=== PATIENT | male | born 1930 | race Caucasian/White ===

== ENCOUNTER 2017-05-01 10:54 | Day surgery (SDC) | payer MEDICARE ==
[2017-05-01 12:39] VITALS: BP 107/61; PULSE 80; RESP 19; TEMP 98.4; O2SAT 99
[2017-05-01] MEDS ORDERED: ADVA250A INH (12:45)
[2017-05-01] MEDS ORDERED: ALBU0.63 NEB (12:45)
[2017-05-01] MEDS ORDERED: CLOP75TA PO (12:46)
[2017-05-01] MEDS ORDERED: MEGE40TA PO (12:46)
[2017-05-01] MEDS ORDERED: ALPR0.25 PO (12:47)
[2017-05-01] MEDS ORDERED: METO25TA3 PO (12:47)
[2017-05-01] MEDS ORDERED: LEVO137T2 PO (12:48)
[2017-05-01] MEDS ORDERED: LOVA40TA PO (12:48)
[2017-05-01] MEDS ORDERED: SLOW47.5 PO (12:49)
[2017-05-01] MEDS ORDERED: SENN1TAB17 PO (12:50)
[2017-05-01] MEDS ORDERED: ADVA100A INH (12:51)
[2017-05-01] MEDS ORDERED: AFRI0.052 EACH NARE (12:52)
[2017-05-01] MEDS ORDERED: SODIUM CHLORIDE 0.9% FLUSH 10 ML FLUSH IVF PRN ×2 (16:15)
--- NOTE | 2017-05-01 16:38 | RADRPT ---
EXAM DATE/TIME: 05/01/2017 15:00 [facility] COMPARISON: No previous studies available for comparison. INDICATIONS : Patient presents with left palate and maxilla cancer in need of intravenous line placement for chemot herapy treatment. MEDICAL HISTORY : Maxilla cancer Anemia Anxiety SURGICAL HISTORY : Cardiac stent ENCOUNTER: Initial ACUITY: 2 weeks PAIN SCORE: 0/10 LOCATION: N/A FLUORO TIME: 1.6 minutes IMAGE SERIES: 0 ACCESS: Right basilic vein MEDICATION(S): 1.) 400 units Heparin IV DEVICE(S): 1.) 4 Arabic single lumen 35 cm Xcela Power PICC PROCEDURE : 1. Ultrasound guidance for venous catheterization. 2. Fluoroscopic guidance. 3. Ultrasound & fluoroscopic guided central venous Power PICC line placement. The risks, benefits and alternatives to the procedure were explained and verbal and written consent w as obtained. The site was prepped in sterile fashion. Full sterile technique was used, including ca p, mask, sterile gloves and gown and a large sterile sheet. Hand hygiene and 2% chlorhexidine prep w as utilized per protocol for cutaneous antisepsis with appropriate dry time for site. The skin and s ubcutaneous tissues were infiltrated with local anesthetic solution. Under direct ultrasound guidance, a suitable vein was accessed and a measuring guidewire was introduc ed and positioned in the central venous system. The ultrasound images depicting access guidance were saved and stored to PACS for permanent record. A Power Injectable PICC line was cut to prescribed length and introduced, positioned with tip at the cavoatrial junction level. The line was flushed and secured per protocol. CONCLUSION: 1. Uncomplicated central venous Power PICC line placement. 2. The PICC line can be used immediately. Felice Atkins MD on May 01, 2017 at 16:35 Board Certified Radiologist. This report was verified electronically.
[2017-05-02] MEDS ORDERED: SODIUM CHLORIDE 0.9% FLUSH 10 ML FLUSH IVF SCH (09:00)
== END 2017-05-01 15:25 | disposition home or self-care (01) ==
LOC: HROP 10:54 → HRIP 10:55 → HROP 15:25
PROVIDERS: ATTEND Internal Medicine Hematology & Oncology
DX: C41.0 Malignant neoplasm of bones of skull and face (principal); C05.9 Malignant neoplasm of palate, unspecified; D64.9 Anemia, unspecified; F41.9 Anxiety disorder, unspecified; Z95.5 Presence of coronary angioplasty implant and graft
CPT/HCPCS: 36569; J1642; 76937; 77001; 77386; 77387; C1751; C1769; C1887

== ENCOUNTER 2017-05-10 06:42 | Day surgery (SDC) | payer MEDICARE ==
[~2017-05-10] VITALS: Ht 172.7 cm; Wt 58.2 kg
[~2017-05-10 06:42] MED LIST: ADVA100A INH; ADVA250A INH; AFRI0.052 EACH NARE; ALBU0.63 NEB; ALPR0.25 PO; CLOP75TA PO; LEVO137T2 PO; LOVA40TA PO; MEGE40TA PO; METO25TA3 PO; SENN1TAB17 PO; SLOW47.5 PO
[2017-05-10 06:57] VITALS: BP 106/67; PULSE 75; RESP 20; TEMP 98.4; O2SAT 98
[2017-05-10] MEDS ORDERED: ceFAZolin 2 GM PREMIX 50 ML ONE (07:44)
[2017-05-10] MEDS ORDERED: BROC500T PO (07:44)
[2017-05-10] MEDS ORDERED: VANCOMYCIN HCL 1000 MG VIAL ONE (07:45)
[2017-05-10 08:18] LABS: PROTHROMBIN TIME - PATIENT 11.6 SEC (9.8-11.6)
[2017-05-10] MEDS ORDERED: SODIUM CHLORIDE 0.9% 1000 ML IV SCH (08:45)
[2017-05-10] MEDS ORDERED: fentaNYL CITRATE 250 MCG/5 ML AMP ONE (09:07)
[2017-05-10] MEDS ORDERED: MIDAZOLAM HCL 5 MG/5 ML VIAL ONE (09:07)
[2017-05-10] MEDS ORDERED: GLUCAGON 1 MG/ML VIAL ONE (09:08)
[2017-05-10] MEDS ORDERED: IOHEXOL 350 MG/ML 50 ML BTL (for RAD DIAG) G-TUBE ONE (09:39)
[2017-05-10 09:40] VITALS: BP 128/70; PULSE 70; RESP 18; O2SAT 96
--- NOTE | 2017-05-10 09:44 | PD.RAD ---
Post Procedure Progress Note Pre Procedure Diagnosis: (1) Head and neck cancer Post Procedure Diagnosis: (1) Head and neck cancer Procedure Date: May 10, 2017 Supervising Radiologist: Joesph Damico Proceduralist/Assist: Corinna Bull RT(R), RT Alexandre(R)() Anesthesia: Conscious Sedation Plan of Activity Patient to Unit: Nursing Unit Patient Condition: Good See PACS Report for procedural detail/treatment Joesph Damico MD May 10, 2017 09:44
[2017-05-10 09:55] VITALS: BP 127/76; PULSE 68; RESP 18; O2SAT 94
[2017-05-10 10:10] VITALS: BP 114/65; PULSE 67; RESP 18; O2SAT 96
--- NOTE | 2017-05-10 10:13 | RADRPT ---
EXAM DATE/TIME: 05/10/2017 08:22 [facility] COMPARISON: No previous studies available for comparison. 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 MEDICAL HISTORY : CAD, High cholesterol, Hypothyroidism, Anemia, Maxilla cancer, Asthma SURGICAL HISTORY : Cardiac stent, Left maxillectomy and insertion of maxillary prosthesis, Multiple biopsies, Right midd le lobe resection ENCOUNTER: Initial ACUITY: 4-6 months PAIN SCORE: 0/10 FLUORO TIME: 1.9 minutes IMAGE SERIES: 1 SEDATION TIME: 30 minutes CONTRAST: 20 cc Omnipaque (iohexol) 350 MEDICATION(S): 1.) 1.5 mg midazolam (Versed) IV 2.) 1 mg glucagon (Gluca-Gen) IV 3.) 75 mcg fentanyl (Sublimaze) IV Prophylactic antibiotics were administered with appropriate pre-procedure timing. Vancomycin within 2 hours of procedure, Ancef (or alternative) within 1 hour of procedure. DEVICE(S): 1.) 18 Fr gastrostomy tube PROCEDURE : 1. Limited abdominal ultrasound. 2. Fluoroscopically guided gastrostomy tube placement. 3. Conscious sedation with continuous EKG and oximetry monitoring. The risks, benefits and alternatives to the procedure were explained and verbal and written consent w as obtained. The site was prepped in sterile fashion. Full sterile technique was used, including ca p, mask, sterile gloves and gown and a large sterile sheet. Hand hygiene and 2% chlorhexidine and/or betadine/alcohol prep was utilized per protocol for cutaneous antisepsis. The skin and subcutaneous tissues were infiltrated with local anesthetic solution. Ultrasound was used to valeri the position of the liver. The stomach was insufflated with room air. Th ree percutaneous fasteners were placed to secure the anterior gastric wall. A small incision was made between the fasteners. The stomach was accessed with an 18 gauge needle. A n 0.035 wire was advanced into the small bowel. The tract was dilated. The gastrostomy tube was int roduced through a peel-away sheath. The position was confirmed with an injection of contrast. Conscious sedation was performed with the prescribed dosages and duration as above in the presence of an independent trained radiology nurse to assist in the monitoring of the patient. EKG and oximetry remained stable throughout the procedure. The patient tolerated the procedure well and there were n o complications. The patient was sent to post anesthesia recovery in stable condition. CONCLUSION: Uncomplicated gastrostomy tube placement as above. Joesph Damico MD on May 10, 2017 at 10:11 Board Certified Radiologist. This report was verified electronically.
[2017-05-10 10:55] VITALS: BP 125/71; PULSE 65; RESP 18; O2SAT 94
[2017-05-10 11:35] VITALS: BP 140/77; PULSE 64; RESP 18; O2SAT 96
== END 2017-05-10 11:50 | disposition home or self-care (01) ==
LOC: HROP 06:42 → HRIP 06:45 → HROP 11:50
PROVIDERS: ATTEND Internal Medicine Hematology & Oncology
DX: C79.51 Secondary malignant neoplasm of bone (principal); I25.10 Atherosclerotic heart disease of native coronary artery without angina pectoris; E03.9 Hypothyroidism, unspecified; E78.00 Pure hypercholesterolemia, unspecified; J45.909 Unspecified asthma, uncomplicated; Z95.5 Presence of coronary angioplasty implant and graft
CPT/HCPCS: 49440; 85610; 99152; 99153; C1769; C1887; C1894; J0690; J1610; J1642; J2250; J3010; J7030; Q9967; J3370

== ENCOUNTER 2017-05-23 10:37 | Observation (INO) | payer MEDICARE ==
[~2017-05-23 10:37] MED LIST changes: +BROC500T PO
[2017-05-23 10:39] VITALS: BP 157/74; PULSE 80; RESP 18; TEMP 97.7; O2SAT 97
[2017-05-23] MEDS ORDERED: SODIUM CHLORIDE 0.9% FLUSH 10 ML FLUSH IVF PRN (11:00)
[2017-05-23 11:06] VITALS: RESP 14; O2SAT 100
[2017-05-23 11:13] LABS: AUTOMATED NEUTROPHIL # 9.4 TH/MM3 (1.8-7.7); BASOPHIL % 0.1 % (0.0-2.0); HEMATOCRIT 33.5 % (39.0-51.0); HEMO FLAGS DIFF FINAL; LYMPH % 1.3 % (9.0-44.0); LYMPHOCYTE # 0.1 TH/MM3 (1.0-4.8); MEAN CELL VOLUME 85.9 FL (80.0-100.0); MEAN CORPUSCULAR HEMOGLOBIN 30.2 PG (27.0-34.0); MEAN CORPUSCULAR HGB CONC 35.2 % (32.0-36.0); MONO % 9.2 % (0.0-8.0); NEUT % 89.4 % (16.0-70.0); PLATELET COUNT 256 TH/MM3 (150-450); RED CELL DISTRIBUTION WIDTH 15.1 % (11.6-17.2); WHITE BLOOD COUNT 10.5 TH/MM3 (4.0-11.0)
--- NOTE | 2017-05-23 11:14 | PD ---
HPI Chief Complaint: Abdominal Pain Time Seen by Provider: 10:48 Travel History International Travel<30 days: No Contact w/Intl Traveler<30days: No Traveled to known affect area: No History of Present Illness HPI PATIENT HAD EPISODE OF VOMITING LAST NIGHT AND SINCE THEN SEVERE EPIG PAIN THAT HAS NOW DECREASED TO 5/10, NONRAD, UNKNOWN WHAT ALLEVIATED SX, AGGRAVATED BY EATING (HAS PEG TUBE IN PLACE), DENIES RECENT SURGERY AND CURRENTLY ON CHEMO...DR OBRIEN ONCOLOGIST, DR PRADO IS PCP. [facility] Past Medical History Cancer: Yes (MOUTH THROAT) Cardiovascular Problems: Yes (STENT) Diabetes: No Diminished Hearing: Yes (BLIATERAL HEARING AIDS) Endocrine: No Genitourinary: No Hepatitis: No Hiatal Hernia: No Hypertension: Yes Immune Disorder: No Musculoskeletal: No Neurologic: No Psychiatric: No Reproductive: No Respiratory: Yes (ASTHMA) Thyroid Disease: Yes Influenza Vaccination: No Past Surgical History Abdominal Surgery: No AICD: No Cardiac Surgery: Yes (STENT) Ear Surgery: No Endocrine Surgery: No Eye Surgery: Yes (CATARACTS) Genitourinary Surgery: No Gynecologic Surgery: No Joint Replacement: No Oral Surgery: Yes (CANCER REMOVED) Pacemaker: No Thoracic Surgery: Yes (LEFT LOBECTOMY) Other Surgery: Yes Social History Alcohol Use: No Tobacco Use: No Substance Use: No Allergies-Medications (Allergen,Severity, Reaction): Coded Allergies: Oxycodone (Verified Adverse Reaction, Intermediate, 05/23/17) severe nausea Reported Meds & Prescriptions Reported Meds & Active Scripts Active Reported [Wheat Grass] 5 Ml PO DAILY l-Glutamine (Glutamine) 1 Pow Pow PO DAILY 1 teaspoonful [Aloe Juice] 180 Ml PO BID 1 [id number] Flax Seed Oil 1000 mg (Flaxseed (Linseed)) 1 Cap Cap 1,000 Mg PO BID Probiotic (Probiotic Product) 1 Tab Tab 1 Tab PO DAILY [Plantfusion Protein] 1 Tab PO BID Azo Bladder Swycoir-Fp-Mwda (Pumpkin Seed-Soy Germ) 1 Cap Cap 1 Cap PO DAILY PRN Flonase Nasal [place] (Fluticasone Nasal [place]) 50 Mcg/Act [place] 1 [place] EACH NARE DAILY PRN Senokot (Sennosides) 8.6 Mg Tab 17.2 Mg PO DAILY Sm Iron Slow Release (Ferrous Sulfate) 142 Mg Tab 142 Mg PO DAILY Broccoli Extract 500 Mg Tab 1,000 Mg PO DAILY Afrin Nasal [place] (Oxymetazoline HCl) 0.05% [place] 2-3 [place] EACH NARE Q12H PRN Levothyroxine (Levothyroxine Sodium) 137 Mcg Tab 137 Mcg PO DAILY Lovastatin 40 Mg Tab 40 Mg PO DAILY Metoprolol Tartrate 25 Mg Tab 25 Mg PO BID Alprazolam 0.25 Mg Tab 0.25 Mg PO Q4H PRN Megestrol (Megestrol Acetate) 40 Mg Tab 40 Mg PO DAILY Clopidogrel (Clopidogrel Bisulfate) 75 Mg Tab 75 Mg PO DAILY Albuterol Neb (Albuterol Sulfate) 0.63 Mg/3 Ml Neb 0.63 Mg NEB Q4HR NEB PRN Advair Diskus Inh (Fluticasone-Salmeterol Inh) 250-50 Mcg/Blist Aer 1 Puff INH BID Rinse mouth after use. Review of Systems Except as stated in HPI: all other systems reviewed are Neg Gastrointestinal: Positive: Vomiting, Abdominal Pain Physical Exam Narrative GENERAL: SKIN: Warm and dry. HEAD: Atraumatic. Normocephalic. EYES: Pupils equal and round. No scleral icterus. No injection or drainage. ENT: No nasal bleeding or discharge. Mucous membranes pink and moist. NECK: Trachea midline. No JVD. LEFT SIDED LARGE MASS (KNOWN CA) CARDIOVASCULAR: Regular rate and rhythm. RESPIRATORY: No accessory muscle use. Clear to auscultation. Breath sounds equal bilaterally. GASTROINTESTINAL: Abdomen soft, MILD TTP OVER EPIG REGION ,nondistended. NO REBOUND, GUARDING OR RIGIDITY MUSCULOSKELETAL: Extremities without clubbing, cyanosis, or edema. No obvious deformities. NEUROLOGICAL: Awake and alert. No obvious cranial nerve deficits. Motor grossly within normal limits. Five out of 5 muscle strength in the arms and legs. Normal speech. PSYCHIATRIC: Appropriate mood and affect; insight and judgment normal. Data Data Last Documented VS Vital Signs Date Time Temp Pulse Resp B/P Pulse Ox O2 Delivery O2 Flow Rate FiO2 05/23/17 13:03 81 19 132/75 99 Room Air 05/23/17 10:39 97.7 Orders Electrocardiogram (05/23/17 10:49) Ckmb (Isoenzyme) Profile (05/23/17 10:49) Complete Blood Count With Diff (05/23/17 10:49) Comprehensive Metabolic Panel (05/23/17 10:49) Prothrombin Time / Inr (Pt) (05/23/17 10:49) Act Partial Throm Time (Ptt) (05/23/17 10:49) Troponin I (05/23/17 10:49) Lipase (05/23/17 10:49) Chest, Single Ap (05/23/17 10:49) Ecg Monitoring (05/23/17 10:49) Bilateral Bp Monitoring (05/23/17 10:49) Iv Access Insert/Monitor (05/23/17 10:49) Oximetry (05/23/17 10:49) Oxygen Administration (05/23/17 10:49) Sodium Chloride 0.9% Flush (Ns Flush) (05/23/17 11:00) Lactic Acid Sepsis Protocol (05/23/17 10:59) Blood Culture (05/23/17 10:59) Ct Abd/Pel W/O Iv Contrast (05/23/17 10:59) Morphine Inj (Morphine Inj) (05/23/17 13:00) Ondansetron Inj (Zofran Inj) (05/23/17 13:00) Sodium Chlorid 0.9% 500 Ml Inj (Ns 500 M (05/23/17 13:00) Admit Order (Ed Use Only) (05/23/17 14:12) Labs Laboratory Tests Test 05/23/17 10:57 White Blood Count 10.5 TH/MM3 Red Blood Count 3.90 MIL/MM3 Hemoglobin 11.8 GM/DL Hematocrit 33.5 % Mean Corpuscular Volume 85.9 FL Mean Corpuscular Hemoglobin 30.2 PG Mean Corpuscular Hemoglobin 35.2 % Concent Red Cell Distribution Width 15.1 % Platelet Count 256 TH/MM3 Mean Platelet Volume 7.6 FL Neutrophils (%) (Auto) 89.4 % Lymphocytes (%) (Auto) 1.3 % Monocytes (%) (Auto) 9.2 % Eosinophils (%) (Auto) 0.0 % Basophils (%) (Auto) 0.1 % Neutrophils # (Auto) 9.4 TH/MM3 Lymphocytes # (Auto) 0.1 TH/MM3 Monocytes # (Auto) 1.0 TH/MM3 Eosinophils # (Auto) 0.0 TH/MM3 Basophils # (Auto) 0.0 TH/MM3 CBC Comment DIFF FINAL Differential Comment Prothrombin Time 11.4 SEC Prothromb Time International 1.0 RATIO Ratio Activated Partial 28.2 SEC Thromboplast Time Sodium Level 134 MEQ/L Potassium Level 4.3 MEQ/L Chloride Level 101 MEQ/L Carbon Dioxide Level 23.9 MEQ/L Anion Gap 9 MEQ/L Blood Urea Nitrogen 25 MG/DL Creatinine 1.24 MG/DL Estimat Glomerular Filtration 56 ML/MIN Rate Random Glucose 112 MG/DL Lactic Acid Level 1.8 mmol/L Calcium Level 8.8 MG/DL Total Bilirubin 0.3 MG/DL Aspartate Amino Transf 29 U/L (AST/SGOT) Alanine Aminotransferase 44 U/L (ALT/SGPT) Alkaline Phosphatase 76 U/L Total Creatine Kinase 21 U/L Troponin I LESS THAN 0.02 NG/ML Total Protein 7.5 GM/DL Albumin 3.0 GM/DL Lipase 131 U/L [facility] Medical Decision Making Medical Screen Exam Complete: Yes Emergency Medical Condition: Yes Medical Record Reviewed: Yes Interpretation(s) NSR 70, NL INTERVALS , NO STEMI PATTERN Differential Diagnosis PANCREATITIS V SBO V PERF V ABD PAIN DUE TO METS Narrative Course PATIENT WAS ADVISED THAT CT DID NOT SHOW ANY PERFORATION/SBO AND NO E/O PANCREATITIS ON BLOOD WORK...HOWEVER DUE TO AGE AND LOCATION I ADVISED ABOUT RISK OF ATYPICAL ME, THEY BOTH AGREED, CHEST PAIN CENTER ORDER PLACED. LATER ON CLOSE TO [address] SAMPSON AQUINO ([place]) AFTER WHICH PATIENT DID NOT WISH TO STAY, DESPITE MY ATTEMPTS, PT AND BOTH WANTED TO GO HOME AND DID NOT WISH TO MISS RADIATION TREATMENT TOMORROW. Diagnosis Primary Impression: EPIGASTRIC PAIN R/O ME Additional Impression: AMA Admitting Information Admitting Physician Requests: Observation Disposition: 07 AGAINST MEDICAL ADVICE Paxton Freeman MD May 23, 2017 11:14
[2017-05-23 11:24] LABS: APTT (PATIENT) 28.2 SEC (24.3-30.1); PROTHROMBIN TIME - PATIENT 11.4 SEC (9.8-11.6)
--- NOTE | 2017-05-23 11:28 | RADRPT ---
EXAM DATE/TIME: 05/23/2017 11:01 [facility] COMPARISON: No previous studies available for comparison. INDICATIONS : Chest and abdomen pain. MEDICAL HISTORY : CAD, High cholesterol, Hypothyroidism, Anemia, Maxilla cancer, Asthma Chemo and radiation. SURGICAL HISTORY : Cardiac stent, Left maxillectomy and insertion of maxillary prosthesis, Multiplebiopsies, Right middl e lobe resection ENCOUNTER: Initial ACUITY: 1 day PAIN SCORE: 5/10 LOCATION: Bilateral chest abdomen and neck. FINDINGS: There is hyperinflation identified. Heart size normal. Right PIC line tip overlies the expected locat ion of the SVC. There is right apical parenchymal scarring. No consolidation or effusion. Osseous str uctures are intact. CONCLUSION: No acute disease. Jake Agudelo MD on May 23, 2017 at 11:24 Board Certified Radiologist. This report was verified electronically.
[2017-05-23 11:35] LABS: ALT (GPT) 44 U/L (12-78); ANION GAP 9 MEQ/L (5-15); AST (GOT) 29 U/L (15-37); BICARBONATE 23.9 MEQ/L (21.0-32.0); BLOOD UREA NITROGEN 25 MG/DL (7-18); CHLORIDE 101 MEQ/L (98-107); GLOMERULAR FILTRATION RATE 56 ML/MIN (>89); POTASSIUM 4.3 MEQ/L (3.5-5.1); SODIUM (NA) 134 MEQ/L (136-145)
[2017-05-23 11:39] LABS: ALKALINE PHOSPHATASE 76 U/L (45-117); TOTAL BILIRUBIN ADULT 0.3 MG/DL (0.2-1.0)
[2017-05-23 11:49] LABS: CREATINE KINASE 21 U/L (39-308)
[2017-05-23] MEDS ORDERED: PROB1TAB PO (12:09)
[2017-05-23] MEDS ORDERED: PUMP1CAP PO (12:09)
[2017-05-23] MEDS ORDERED: GLUT1POW PO (12:09)
[2017-05-23] MEDS ORDERED: FLAX10002 PO (12:09)
[2017-05-23] MEDS ORDERED: ALOE JUICE PO (12:09)
[2017-05-23] MEDS ORDERED: [UNRECOGNIZED DRUG - OTHER] PO (12:09)
[2017-05-23] MEDS ORDERED: FLUT1SPR5 EACH NARE (12:09)
[2017-05-23] MEDS ORDERED: SENO8.6T5 PO (12:09)
[2017-05-23] MEDS ORDERED: [UNRECOGNIZED DRUG - OTHER] PO (12:09)
[2017-05-23] MEDS ORDERED: [UNRECOGNIZED DRUG - CODE] PO (12:09)
[2017-05-23] MEDS ORDERED: WHEAT GRASS PO (12:10)
[2017-05-23] MEDS ORDERED: MORPHINE SULFATE 4 MG/ML INJ IV PUSH ONE (13:00)
[2017-05-23] MEDS ORDERED: ONDANSETRON HCL 4 MG/2 ML VIAL IV PUSH ONE (13:00)
[2017-05-23] MEDS ORDERED: SODIUM CHLORID 0.9% 500 ML INJ 500 ML IV ONE (13:00)
[2017-05-23 13:03] VITALS: BP 132/75; PULSE 81; RESP 19; O2SAT 99
--- NOTE | 2017-05-23 13:05 | RADRPT ---
EXAM DATE/TIME: 05/23/2017 12:19 [facility] COMPARISON: No previous studies available for comparison. INDICATIONS : History of oral cancer, epigastric pain since last night. ORAL CONTRAST: No oral contrast ingested. RADIATION DOSE: 5.06 CTDIvol (mGy) MEDICAL HISTORY : Carcinoma, oral cavity. Cardiovascular disease Hypertension. SURGICAL HISTORY : oral cancer removed ENCOUNTER: Initial ACUITY: 1 day PAIN SCALE: 4/10 LOCATION: epigastric pain TECHNIQUE: Volumetric scanning of the abdomen and pelvis was performed. Using automated exposure control and ad justment of the mA and/or kV according to patient size, radiation dose was kept as low as reasonably achievable to obtain optimal diagnostic quality images. DICOM format image data is available electro nically for review and comparison. FINDINGS: Linear scarring present at the lung bases. He No acute findings in the liver, spleen, adrenals or pancreas. Gastrostomy tube present. Nonobstructin g approximately 2 mm calculi present in the upper and lower pole right kidney and upper pole left kid selena. No hydronephrosis. Atherosclerotic aorta without aneurysm. No pelvic masses or free fluid. Colonic diverticulosis, espec ially sigmoid. No acute bony abnormalities. CONCLUSION: 1. No acute findings. 2. Gastrostomy tube in stomach. 3. Nonobstructing small renal calculi. 4. Colonic diverticulosis. Sarmad Ramirez MD on May 23, 2017 at 12:58 Board Certified Radiologist. This report was verified electronically.
[2017-05-23 15:12] VITALS: BP 122/81; PULSE 75; RESP 16; O2SAT 100
--- NOTE | 2017-05-24 10:12 | EKG ---
Date Performed: 05/23/2017 Time Performed: 11:02:12 PTAGE: 86 years EKG: Sinus rhythm NORMAL ECG NO PREVIOUS TRACING DOCTOR: Chris Haque Interpretating Date/Time 05/24/2017 10:11:03
== END 2017-05-23 15:11 | disposition left against medical advice (07) ==
LOC: NEPC 10:37 → NEDA 14:14
PROVIDERS: ADMIT Internal Medicine Cardiovascular Disease; ATTEND Internal Medicine Cardiovascular Disease
DX: R10.13 Epigastric pain (principal); R11.10 Vomiting, unspecified; I25.10 Atherosclerotic heart disease of native coronary artery without angina pectoris; I10 Essential (primary) hypertension; E78.00 Pure hypercholesterolemia, unspecified; E03.9 Hypothyroidism, unspecified; J45.909 Unspecified asthma, uncomplicated; K57.30 Diverticulosis of large intestine without perforation or abscess without bleeding; N20.0 Calculus of kidney; H91.90 Unspecified hearing loss, unspecified ear; Z93.1 Gastrostomy status; Z95.5 Presence of coronary angioplasty implant and graft; Z79.899 Other long term (current) drug therapy; Z85.89 Personal history of malignant neoplasm of other organs and systems; Z92.21 Personal history of antineoplastic chemotherapy; Z92.3 Personal history of irradiation
CPT/HCPCS: 71010; 74176; 80053; 82550; 83605; 83690; 84484; 85025; 85610; 85730; 87040; 93005; 96361; 96374; 96375; 99285; G0378; J2270; J2405; J7040

== ENCOUNTER 2017-05-30 08:46 | Inpatient (IN) | payer MEDICARE ==
[~2017-05-30] VITALS: Ht 162.6 cm; Wt 59.7 kg
[2017-05-30] VITALS (7 sets, daily range): BP systolic 116–140; BP diastolic 55–81; PULSE 68–86; RESP 14–20; TEMP 97.4–98.3; O2SAT 96–100
[~2017-05-30 08:46] MED LIST changes: -ADVA100A INH; +ALOE JUICE PO; +FLAX10002 PO; +FLUT1SPR5 EACH NARE; +GLUT1POW PO; +PROB1TAB PO; +PUMP1CAP PO; -SENN1TAB17 PO; +SENO8.6T5 PO; -SLOW47.5 PO; +WHEAT GRASS PO; +[UNRECOGNIZED DRUG - CODE] PO; +[UNRECOGNIZED DRUG - OTHER] PO
[2017-05-30] MEDS ORDERED: ONDANSETRON HCL 4 MG/2 ML VIAL IV ONE (09:30)
[2017-05-30] MEDS ORDERED: SODIUM CHLORID 0.9% 500 ML INJ 500 ML IV ONE (09:30)
--- NOTE | 2017-05-30 09:31 | PD ---
HPI Chief Complaint: GI Complaint Time Seen by Provider: 09:24 Travel History International Travel<30 days: No Contact w/Intl Traveler<30days: No Traveled to known affect area: No History of Present Illness HPI 86-year-old male with history of oral cavity cancer, on chemotherapy and radiation, presents to the ER today for several days of nausea and vomiting not controlled with his current home medications. Patient's states that he is not keeping anything down. He was told by his oncologist to come to the ER for further treatment. denies any fevers or any other issues per patient has PEG tube. Modifying Factors: None Associated Signs & Symptoms: Nausea and vomiting for several days Risk Factors: Cancer on chemotherapy and radiation PFSH Past Medical History Hx Anticoagulant Therapy: Yes (PLAVIX) Cancer: Yes (MOUTH THROAT) Cardiovascular Problems: Yes (1 STENT) Chemotherapy: Yes (05/22/17 ORAL CA) Diabetes: No Diminished Hearing: Yes (BLIATERAL HEARING AIDS) Endocrine: No Gastrointestinal Disorders: No Genitourinary: No Hepatitis: No Hiatal Hernia: No Hypertension: Yes Immune Disorder: No Medical other: Yes (on radiation/chemo) Musculoskeletal: No Neurologic: No Psychiatric: No Reproductive: No Respiratory: Yes (ASTHMA) Thyroid Disease: Yes Tetanus Vaccination: Unknown Influenza Vaccination: No Past Surgical History Abdominal Surgery: No AICD: No Cardiac Surgery: Yes (STENT) Ear Surgery: No Endocrine Surgery: No Eye Surgery: Yes (CATARACTS) Genitourinary Surgery: No Gynecologic Surgery: No Joint Replacement: No Neurologic Surgery: No Oral Surgery: Yes (CANCER REMOVED) Pacemaker: No Thoracic Surgery: Yes (LEFT LOBECTOMY) Other Surgery: Yes Social History Alcohol Use: No Tobacco Use: No Substance Use: No Allergies-Medications (Allergen,Severity, Reaction): Coded Allergies: Oxycodone (Verified Adverse Reaction, Intermediate, 05/23/17) severe nausea Reported Meds & Prescriptions Reported Meds & Active Scripts Active Reported [Wheat Grass] 5 Ml PO DAILY l-Glutamine (Glutamine) 1 Pow Pow PO DAILY 1 teaspoonful [Aloe Juice] 180 Ml PO BID 1 [id number] Flax Seed Oil 1000 mg (Flaxseed (Linseed)) 1 Cap Cap 1,000 Mg PO BID Probiotic (Probiotic Product) 1 Tab Tab 1 Tab PO DAILY [Plantfusion Protein] 1 Tab PO BID Azo Bladder Ezembfu-Rt-Aakd (Pumpkin Seed-Soy Germ) 1 Cap Cap 1 Cap PO DAILY PRN Flonase Nasal [place] (Fluticasone Nasal [place]) 50 Mcg/Act [place] 1 [place] EACH NARE DAILY PRN Senokot (Sennosides) 8.6 Mg Tab 17.2 Mg PO DAILY Sm Iron Slow Release (Ferrous Sulfate) 142 Mg Tab 142 Mg PO DAILY Broccoli Extract 500 Mg Tab 1,000 Mg PO DAILY Afrin Nasal [place] (Oxymetazoline HCl) 0.05% [place] 2-3 [place] EACH NARE Q12H PRN Levothyroxine (Levothyroxine Sodium) 137 Mcg Tab 137 Mcg PO DAILY Lovastatin 40 Mg Tab 40 Mg PO DAILY Metoprolol Tartrate 25 Mg Tab 25 Mg PO BID Alprazolam 0.25 Mg Tab 0.25 Mg PO Q4H PRN Megestrol (Megestrol Acetate) 40 Mg Tab 40 Mg PO DAILY Clopidogrel (Clopidogrel Bisulfate) 75 Mg Tab 75 Mg PO DAILY Albuterol Neb (Albuterol Sulfate) 0.63 Mg/3 Ml Neb 0.63 Mg NEB Q4HR NEB PRN Advair Diskus Inh (Fluticasone-Salmeterol Inh) 250-50 Mcg/Blist Aer 1 Puff INH BID Rinse mouth after use. Review of Systems Except as stated in HPI: all other systems reviewed are Neg Physical Exam Narrative GENERAL: Well-developed thin elderly white male patient currently in moderate distress. Awake and oriented 3. SKIN: Focused skin assessment warm/dry. HEAD: Atraumatic. Normocephalic. EYES: Pupils equal and round. No scleral icterus. No injection or drainage. ENT: No nasal bleeding or discharge. Mucous membranes pink and dry. NECK: Trachea midline. Palpable firm large left neck mass which is nontender to palpation. CARDIOVASCULAR: Regular rate and rhythm. No murmur appreciated. RESPIRATORY: No accessory muscle use. Clear to auscultation. Breath sounds equal bilaterally. GASTROINTESTINAL: Abdomen soft, non-tender, nondistended. Hepatic and splenic margins not palpable. MUSCULOSKELETAL: No obvious deformities. No clubbing. No cyanosis. No edema. NEUROLOGICAL: Awake and alert. No obvious cranial nerve deficits. Motor grossly within normal limits. Normal speech. PSYCHIATRIC: Appropriate mood and affect; insight and judgment normal. Data Data Last Documented VS Vital Signs Date Time Temp Pulse Resp B/P Pulse Ox O2 Delivery O2 Flow Rate FiO2 05/30/17 09:28 100 05/30/17 09:28 68 05/30/17 09:15 14 140/63 Room Air 05/30/17 08:47 97.4 Orders Complete Blood Count With Diff (05/30/17 09:19) Comprehensive Metabolic Panel (05/30/17 09:19) Lactic Acid Sepsis Protocol (05/30/17 09:19) Lipase (05/30/17 09:19) Urinalysis - C+S If Indicated (05/30/17 09:19) Blood Culture (05/30/17:19) Chest, Single Ap (05/30/17:19) Blood Glucose (05/30/17:19) Ecg Monitoring (05/30/17:) Iv Access Insert/Monitor (05/30/17 09:19) Oximetry (05/30/17:19) Oxygen Administration (05/30/17 09:19) Ondansetron Inj (Zofran Inj) (05/30/17 09:30) Sodium Chlorid 0.9% 500 Ml Inj (Ns 500 M (05/30/17 09:30) Labs Laboratory Tests Test 05/30/17 05/30/17 05/30/17 09:35 09:40 10:00 White Blood Count 3.4 TH/MM3 Red Blood Count 3.68 MIL/MM3 Hemoglobin 10.7 GM/DL Hematocrit 32.2 % Mean Corpuscular Volume 87.7 FL Mean Corpuscular Hemoglobin 29.1 PG Mean Corpuscular Hemoglobin 33.2 % Concent Red Cell Distribution Width 15.0 % Platelet Count 181 TH/MM3 Mean Platelet Volume 6.9 FL Neutrophils (%) (Auto) 81.7 % Lymphocytes (%) (Auto) 5.7 % Monocytes (%) (Auto) 11.6 % Eosinophils (%) (Auto) 0.5 % Basophils (%) (Auto) 0.5 % Neutrophils # (Auto) 2.8 TH/MM3 Lymphocytes # (Auto) 0.2 TH/MM3 Monocytes # (Auto) 0.4 TH/MM3 Eosinophils # (Auto) 0.0 TH/MM3 Basophils # (Auto) 0.0 TH/MM3 CBC Comment DIFF FINAL Differential Comment Sodium Level 132 MEQ/L Potassium Level 3.9 MEQ/L Chloride Level 99 MEQ/L Carbon Dioxide Level 25.2 MEQ/L Anion Gap 8 MEQ/L Blood Urea Nitrogen 15 MG/DL Creatinine 1.10 MG/DL Estimat Glomerular Filtration 64 ML/MIN Rate Random Glucose 82 MG/DL Calcium Level 8.7 MG/DL Total Bilirubin 0.3 MG/DL Aspartate Amino Transf 15 U/L (AST/SGOT) Alanine Aminotransferase 19 U/L (ALT/SGPT) Alkaline Phosphatase 58 U/L Total Protein 6.8 GM/DL Albumin 2.8 GM/DL Lipase 97 U/L Lactic Acid Level 0.9 mmol/L Urine Color LIGHT-YELLOW Urine Turbidity CLEAR Urine pH 7.5 Urine Specific [place] 1.007 Urine Protein NEG mg/dL Urine Glucose (UA) NEG mg/dL Urine Ketones NEG mg/dL Urine Occult Blood NEG Urine Nitrite NEG Urine Bilirubin NEG Urine Urobilinogen LESS THAN 2.0 MG/DL Urine Leukocyte Esterase NEG Urine RBC LESS THAN 1 /hpf Urine WBC LESS THAN 1 /hpf Urine Hyaline Casts 1 /lpf Microscopic Urinalysis Comment CATH-CULT NOT IND MDM Medical Decision Making Medical Screen Exam Complete: Yes Emergency Medical Condition: Yes Medical Record Reviewed: Yes Interpretation(s) Laboratory Tests Test 05/30/17 09:35 White Blood Count 3.4 TH/MM3 (4.0-11.0) Red Blood Count 3.68 MIL/MM3 (4.50-5.90) Hemoglobin 10.7 GM/DL (13.0-17.0) Hematocrit 32.2 % (39.0-51.0) Mean Platelet Volume 6.9 FL (7.0-11.0) Neutrophils (%) (Auto) 81.7 % (16.0-70.0) Lymphocytes (%) (Auto) 5.7 % (9.0-44.0) Monocytes (%) (Auto) 11.6 % (0.0-8.0) Lymphocytes # (Auto) 0.2 TH/MM3 (1.0-4.8) Sodium Level 132 MEQ/L (136-145) Estimat Glomerular Filtration 64 ML/MIN (>89) Rate Albumin 2.8 GM/DL (3.4-5.0) Differential Diagnosis Nausea, vomiting, poor by mouth intakedehydration versus failure to thrive versus metabolic abnormalities Narrative Course Patient was given IV fluids and nausea medication the ER. He was also given pain medications. Case was discussed with patient's oncologist who would like him to be admitted as an observation for control of his symptoms. Case was then discussed with family practice resident service for admission. Diagnosis Primary Impression: Vomiting Additional Impression: Dehydration Admitting Information Admitting Physician Requests: Admit Jimmie Short MD May 30, 2017 09:31
--- NOTE | 2017-05-30 09:57 | RADRPT ---
EXAM DATE/TIME: 05/30/2017 09:27 [facility] COMPARISON: CHEST SINGLE AP, May 23, 2017, 11:01. INDICATIONS : Vomiting. Mild shortness of breath. MEDICAL HISTORY : Carcinoma, oral cavity. Cardiovascular disease. Hypercholesterolemia. Hypothyroidism. Anemia. Ast hma. Hypertension. SURGICAL HISTORY : Oral cancer removal. Right middle lobe resection. Maxillary prosthesis. Cardiac stent. Gastrostomy. ENCOUNTER: Initial ACUITY: 1 day PAIN SCORE: 0/10 LOCATION: Bilateral chest FINDINGS: Stable right-sided PICC line. Lungs are slightly hypoaerated with right apical scarring similar to pr ior exam. No new focal parenchymal or pleural opacities. Cardiomediastinal contours are within normal limits. Remainder of the exam is unchanged. CONCLUSION: 1. No acute abnormality or significant interval change. Joesph Damico MD on May 30, 2017 at 9:55 Board Certified Radiologist. This report was verified electronically.
[2017-05-30 10:00] LABS: AUTOMATED NEUTROPHIL # 2.8 TH/MM3 (1.8-7.7); BASOPHIL % 0.5 % (0.0-2.0); EOSINOPHIL % 0.5 % (0.0-4.0); HEMATOCRIT 32.2 % (39.0-51.0); HEMO FLAGS DIFF FINAL; LYMPH % 5.7 % (9.0-44.0); LYMPHOCYTE # 0.2 TH/MM3 (1.0-4.8); MEAN CELL VOLUME 87.7 FL (80.0-100.0); MEAN CORPUSCULAR HEMOGLOBIN 29.1 PG (27.0-34.0); MEAN CORPUSCULAR HGB CONC 33.2 % (32.0-36.0); MONO % 11.6 % (0.0-8.0); NEUT % 81.7 % (16.0-70.0); PLATELET COUNT 181 TH/MM3 (150-450); RED BLOOD COUNT 3.68 MIL/MM3 (4.50-5.90); WHITE BLOOD COUNT 3.4 TH/MM3 (4.0-11.0)
[2017-05-30 10:10] LABS: AST (GOT) 15 U/L (15-37); BICARBONATE 25.2 MEQ/L (21.0-32.0); BLOOD UREA NITROGEN 15 MG/DL (7-18); GLOMERULAR FILTRATION RATE 64 ML/MIN (>89)
[2017-05-30 10:11] LABS: ALT (GPT) 19 U/L (12-78)
[2017-05-30 10:27] LABS: BLOOD, URINE NEG (NEG); GLUCOSE,URINE NEG (NEG); HYALINE CAST, URINE 1 /lpf (RARE); KETONE, URINE NEG (NEG); NITRITE,URINE NEG (NEG); PH, URINE 7.5 (5.0-8.5); URINE COLOR LIGHT-YELLOW (YELLW/STRAW)
[2017-05-30 10:32] LABS: COMMENT (UR) CATH-CULT NOT IND; CULTURE IF INDICATED CATH CULTURE NOT IND
[2017-05-30 10:50] LABS: ALKALINE PHOSPHATASE 58 U/L (45-117); ANION GAP 8 MEQ/L (5-15); CHLORIDE 99 MEQ/L (98-107); POTASSIUM 3.9 MEQ/L (3.5-5.1); SODIUM (NA) 132 MEQ/L (136-145); TOTAL BILIRUBIN ADULT 0.3 MG/DL (0.2-1.0)
--- NOTE | 2017-05-30 12:06 | HHI.HP ---
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 He has been feeling nauseous and more fatigued than baseline for the last couple of weeks. Of note, baseline are short walks, sitting on the computer with naps throughout the day. was able to syringe feed in addition to tube feedings prior to two weeks ago. Last week Monday, patient came to the ED due to abdominal pain and nausea/ vomiting. He was given fluids, anti-emetics, and morphine. Patient was discharged later in the day. He felt fine for the rest of the week until Monday, when patient threw up all afternoon. alternated giving patient Zofran and prochlorperazine. Patient was given Pedialyte and water later in the day, which he tolerated. Tube feeds were held until Monday; they were started slowly. Patient tolerated feeds on Monday and Monday. On Monday, patient underwent radiation, received fluids but did not receive chemotherapy because oncologist felt that patient appeared too weak. On Monday morning, patient started vomiting again. denies seeing blood in the vomit; she describes it as yellow/green. She denies that her has had fever and chills. He has not had a bowel movement for 4 days, which is not uncommon for him. Patient is on stool softener at home. denies seeing blood or dark stool with last bowel movement. Patient has also complained of pain in his mouth, throat and lymph nodes. Chemotherapy/Radiation: Started in April 2017; patient in 5th week of treatment. Last chemotherapy: 05/22/17; missed 05/29/17 (see above). Last radiation: 05/29/17. (Denisa Porter MD R1) Review of Systems Constitutional: COMPLAINS OF: Fatigue, Weight loss, DENIES: Fever, Chills, Dizziness, Change in appetite Eyes: DENIES: Blurred vision, Diplopia, Vision loss, Double Vision Ears, nose, mouth, throat: COMPLAINS OF: Nasal discharge, Oral lesions, Throat pain, Running Nose, DENIES: Ear Pain Respiratory: COMPLAINS OF: Cough Cardiovascular: DENIES: Chest pain, Palpitations, Lower Extremity Edema Gastrointestinal: COMPLAINS OF: Constipation (Last BM x4 days), Nausea, Vomiting, Difficulty Swallowing, DENIES: Abdominal pain (Not since ED visit on Monday), Black stools, Bloody stools, Diarrhea Genitourinary: COMPLAINS OF: Nocturia, DENIES: Urinary frequency Musculoskeletal: COMPLAINS OF: Neck pain, DENIES: Joint pain, Muscle aches Integumentary: DENIES: Abnormal pigmentation, Nail changes Hematologic/lymphatic: DENIES: Bruising Neurologic: DENIES: Headache, Seizures Psychiatric: DENIES: Anxiety, Confusion, Mood changes, Depression (Denisa Porter MD R1) Past Family Social History Past Medical History Asthma Constipation Aspiration of foreign object, followed by infection s/p 2012 right, middle lobe of lung resection Blockage in one coronary artery - stent placed x1 March 2015 Past Surgical History Inguinal hernia repair 1990s Right, middle lobe of lung resection 2012 Cardiac stent placement x1 March 2015 Oral cancer resection Jan 16, 2017 PEG tube placement April 2017 Reported Medications Reported Meds & Active Scripts Active Reported Prochlorperazine Maleate 10 Mg Tab 10 Mg PO Q6H PRN Zofran (Ondansetron HCl) 8 Mg Tab 8 Mg PO TID PRN [Wheat Grass] 5 Ml PO DAILY l-Glutamine (Glutamine) 1 Pow Pow PO DAILY 1 TEASPOONFUL [Aloe Juice] 180 Ml PO BID 1 VNT=702YT Flax Seed Oil 1000 mg (Flaxseed (Linseed)) 1 Cap Cap 1,000 Mg PO BID Probiotic (Probiotic Product) 1 Tab Tab 1 Tab PO DAILY [Plantfusion Protein] 1 Tab PO BID Azo Bladder Riwlrqa-Oj-Waey (Pumpkin Seed-Soy Germ) 1 Cap Cap 1 Cap PO DAILY PRN Flonase Nasal [place] (Fluticasone Nasal [place]) 50 Mcg/Act [place] 1 [place] EACH NARE DAILY PRN Senokot (Sennosides) 8.6 Mg Tab 17.2 Mg PO DAILY Sm Iron Slow Release (Ferrous Sulfate) 142 Mg Tab 142 Mg PO DAILY Broccoli Extract 500 Mg Tab 1,000 Mg PO DAILY Afrin Nasal [place] (Oxymetazoline HCl) 0.05% [place] 2-3 [place] EACH NARE Q12H PRN Levothyroxine (Levothyroxine Sodium) 137 Mcg Tab 137 Mcg PO DAILY Lovastatin 40 Mg Tab 40 Mg PO DAILY Metoprolol Tartrate 25 Mg Tab 25 Mg PO BID Alprazolam 0.25 Mg Tab 0.25 Mg PO Q4H PRN Megestrol (Megestrol Acetate) 40 Mg Tab 40 Mg PO DAILY Clopidogrel (Clopidogrel Bisulfate) 75 Mg Tab 75 Mg PO DAILY Albuterol Neb (Albuterol Sulfate) 0.63 Mg/3 Ml Neb 0.63 Mg NEB Q4HR NEB PRN Advair Diskus Inh (Fluticasone-Salmeterol Inh) 250-50 Mcg/Blist Aer 1 Puff INH BID Rinse mouth after use. (LaBellDenisa MD R1) Allergies: Coded Allergies: Oxycodone (Verified Adverse Reaction, Intermediate, 05/23/17) severe nausea Active Ordered Medications Current Medications Medications (Trade) Dose Ordered Sig/[place] Route Start Time Stop Time Status Last Admin (NS 1000 ml Inj) 1,000 ml @ 100 mls/hr Q10H IV 05/30/17 12:11 05/30/17 15:14 (NS Flush) 2 ml UNSCH PRN IV FLUSH 05/30/17 12:15 (NS Flush) 2 ml BID IV FLUSH 05/30/17 12:15 05/30/17 12:15 (Tylenol) 650 mg Q4H PRN PO 05/30/17 12:15 (Zofran Inj) 4 mg Q6H PRN IVP 05/30/17 12:15 05/30/17 15:22 (Compazine Supp) 25 mg Q12H PRN RECTAL 05/30/17 12:15 (Heparin Inj) 5,000 units Q12H SQ 05/30/17 13:00 05/30/17 15:12 (Narcan Inj) 0.4 mg UNSCH PRN IV 05/30/17 12:15 (Caitlyn-Colace) 1 tab BID PO 05/30/17 12:15 05/30/17 15:12 (Milk Of Magnesia Liq) 30 ml Q12H PRN PO 05/30/17 12:15 (Senokot) 17.2 mg Q12H PRN PO 05/30/17 12:15 (Dulcolax Supp) 10 mg DAILY PRN RECTAL 05/30/17 12:15 (Lactulose Liq) 30 ml DAILY PRN PO 05/30/17 12:15 (Xanax) 0.25 mg Q4H PRN PO 05/30/17 12:30 (Pravachol) 40 mg DAILY PO 05/30/17 12:30 05/30/17 15:12 (Lopressor) 25 mg BID PO 05/30/17 12:30 05/30/17 15:12 (Synthroid) 112 mcg DAILY@06 PO 05/31/17 06:00 (Tylenol) 650 mg Q6H PRN PO 05/30/17 18:30 (Morphine Inj) 4 mg Q3H PRN IV 05/30/17 18:30 (Dilaudid Pf Inj) 0.5 mg Q3H PRN IV 05/30/17 18:30 (Ultram) 50 mg Q4H PRN PO 05/30/17 18:30 (Narcan Inj) 0.4 mg UNSCH PRN IV 05/30/17 18:30 Family History Brother ( 81) - colon CA Niece - breast CA Father ( 52) - stroke Mother ( 90s; of old age) Social History Alcohol - When younger social drinker; never heavy drinker. Tobacco - Never smoked or chewed tobacco. Substance - Never. (Denisa Porter MD R1) Physical Exam Vital Signs Vital Signs Date Time Temp Pulse Resp B/P Pulse Ox O2 Delivery O2 Flow Rate FiO2 05/30/17 09:28 100 05/30/17 09:28 68 05/30/17 09:15 73 14 140/63 100 Room Air 05/30/17 08:47 97.4 86 18 116/55 Room Air Physical Exam GENERAL: This is a thin, tired-looking patient, in some distress. SKIN: Redness noted, especially around neck and mouth area. Ecchymoses on upper and lower extremities. Cool and dry. HEAD/NECK: Atraumatic. Normocephalic. No temporal or scalp tenderness. Large lump visible on left side of neck. EYES: Pupils equal round and reactive. Extraocular motions intact. No scleral icterus. No injection or drainage. ENT: Nose without bleeding, purulent drainage or septal hematoma. Lips appear dry and cracked. Lesions noted on tongue. White patches appreciated on right side of roof of mouth. Left side of roof of mouth has opening into nasal cavity. Airway patent. NECK: Trachea midline. No JVD or lymphadenopathy. Supple, nontender, no meningeal signs. CARDIOVASCULAR: Regular rate and rhythm without murmurs, gallops, or rubs. RESPIRATORY: Clear to auscultation. Breath sounds equal bilaterally. No wheezes , rales, or rhonchi. GASTROINTESTINAL: Abdomen soft, non-tender, nondistended. No hepato-splenomegaly , or palpable masses. No guarding. MUSCULOSKELETAL: Extremities without clubbing, cyanosis, or edema. No joint tenderness, effusion, or edema noted. No calf tenderness. NEUROLOGICAL: Awake and alert. Cranial nerves II through XII intact. Motor and sensory grossly within normal limits. Five out of 5 muscle strength in all muscle groups. Normal speech. Laboratory Laboratory Tests Test 05/30/17 05/30/17 05/30/17 09:35 09:40 10:00 White Blood Count 3.4 Red Blood Count 3.68 Hemoglobin 10.7 Hematocrit 32.2 Mean Corpuscular Volume 87.7 Mean Corpuscular Hemoglobin 29.1 Mean Corpuscular Hemoglobin 33.2 Concent Red Cell Distribution Width 15.0 Platelet Count 181 Mean Platelet Volume 6.9 Neutrophils (%) (Auto) 81.7 Lymphocytes (%) (Auto) 5.7 Monocytes (%) (Auto) 11.6 Eosinophils (%) (Auto) 0.5 Basophils (%) (Auto) 0.5 Neutrophils # (Auto) 2.8 Lymphocytes # (Auto) 0.2 Monocytes # (Auto) 0.4 Eosinophils # (Auto) 0.0 Basophils # (Auto) 0.0 CBC Comment DIFF FINAL Differential Comment Sodium Level 132 Potassium Level 3.9 Chloride Level 99 Carbon Dioxide Level 25.2 Anion Gap 8 Blood Urea Nitrogen 15 Creatinine 1.10 Estimat Glomerular Filtration 64 Rate Random Glucose 82 Calcium Level 8.7 Total Bilirubin 0.3 Aspartate Amino Transf 15 (AST/SGOT) Alanine Aminotransferase 19 (ALT/SGPT) Alkaline Phosphatase 58 Total Protein 6.8 Albumin 2.8 Lipase 97 Lactic Acid Level 0.9 Urine Color LIGHT-YELLOW Urine Turbidity CLEAR Urine pH 7.5 Urine Specific [place] 1.007 Urine Protein NEG Urine Glucose (UA) NEG Urine Ketones NEG Urine Occult Blood NEG Urine Nitrite NEG Urine Bilirubin NEG Urine Urobilinogen LESS THAN 2.0 Urine Leukocyte Esterase NEG Urine RBC LESS THAN 1 Urine WBC LESS THAN 1 Urine Hyaline Casts 1 Microscopic Urinalysis Comment CATH-CULT NOT IND Date/Time Procedure Status Source Growth 05/30/17 11:10 Aerobic Blood Culture Received Blood Peripheral Pending 05/30/17 11:10 Anaerobic Blood Culture Received Blood Peripheral Pending (Denisa Porter MD R1) Result Diagram: 05/30/17 0935 05/30/17 0935 Imaging Last Impressions Chest X-Ray 05/30/17918 Signed Impressions: Service Date/Time: Tuesday, May 30, 2017 09:27 - CONCLUSION: 1. No acute abnormality or significant interval change. 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 He has been feeling nauseous and more fatigued than baseline for the last couple of weeks. He was admitted to the family medicine team with suspected dehydration. Code Status Alternative Code Discussed Condition With Dr. Blackwood, Attending Dr. Evita Pa, PGY-3 Dr. Germania Montano, PGY-2 (Denisa Porter MD R1) Attending Attestation THIS CASE WAS DISCUSSED WITH THE RESIDENT PHYSICIANS. I HAVE REVIEWED THE RECORD AND AGREE WITH THE ABOVE NOTE AND PLAN OF CARE WAS DISCUSSED. I HAVE AUTHORIZED THE ORDER FOR ADMISSION TO AN IN-PATIENT STATUS. (Patria Blackwood MD) Problem List: (1) Vomiting Status: Acute Plan: Etiology: * Likely adverse effects to chemotherapy and radiation. * Bowel obstruction unlikely - Abdomen/pelvis CT on 05/23/17 showed no acute findings; gastrostomy tube in stomach; nonobstructing small renal calculi; colonic diverticulosis. Started on Zofran 4mg q6h PRN IV. Started on Prochlorperazine 25mg q12h PRN rectal. Diet Tube Feeds as tolerated. * Tube feeds called [facility] per . (2) Dehydration Status: Acute Plan: Etiology: * Prolonged vomiting (see above). Started on NS 1,000ml at 100mls/hr q10h IV. * Received NS Bolus; 500ml at 500mls/hr once IV Monitor electrolytes. Na low (132) at admission. (3) Oral cancer Status: Acute Plan: Oral cancer s/p cancer resection on January 16, 2017. Currently undergoing chemotherapy and radiation. Ordered pain medication PRN: * Tylenol 650mg q6h PO (Pain 1-2) * Tramadol HCL 50mg q4h PO (Pain 3-5) * Morphine 4mg q3h IV (Pain 6-10) * Dilaudid 0.5mg q3h IV (Breakthrough pain) Ordered stool softener PRN. (4) Fluid, Electrolyte, Nutrition and Prophylaxis Status: Acute Plan: Fluid: * NS 1,000ml at 100mls/hr q10h IV. Electrolytes: * Monitor electrolytes. * Na low (132) at admission. Nutrition * Tube Feeds as tolerated * Tube Feed: [facility] as per . DVT Prophylaxis: * Heparin 5,000 units q12h SQ GI Prophylaxis: * Not indicated. (Denisa Porter MD R1) Physician Certification 2 Midnight Certification Type: Admission for Inpatient Services Order for Inpatient Services The services are ordered in accordance with Medicare regulations or non- Medicare payer requirements, as applicable. In the case of services not specified as inpatient-only, they are appropriately provided as inpatient services in accordance with the 2-midnight benchmark. Estimated LOS (days): 2 days is the estimated time the patient will need to remain in the hospital, assuming treatment plan goals are met and no additional complications. Post-Hospital Plan: Home (Denisa Porter MD R1) 2 Midnight Certification Type: Admission for Inpatient Services Post-Hospital Plan: Home (Patria Blackwood MD) Problem Qualifiers (1) Vomiting: Denisa Porter MD R1 May 30, 2017 12:06 Patria Blackwood MD May 31, 2017 12:04
[2017-05-30] MEDS ORDERED: MAGNESIUM HYDROXIDE SUSP 30 ML CUP PO PRN (12:15)
[2017-05-30] MEDS: SODIUM CHLORIDE 0.9% FLUSH 10 ML FLUSH IV FLUSH SCH ×2 (12:15→21:00)
[2017-05-30] MEDS ORDERED: SODIUM CHLORIDE 0.9% FLUSH 10 ML FLUSH IV FLUSH PRN (12:15)
[2017-05-30] MEDS ORDERED: LACTULOSE SYRUP 20 GM/30 ML CUP PO PRN (12:15)
[2017-05-30] MEDS ORDERED: ACETAMINOPHEN 325 MG TAB PO PRN ×2 (12:15→18:30)
[2017-05-30] MEDS ORDERED: BISACODYL 10 MG SUPP RECTAL PRN (12:15)
[2017-05-30] MEDS ORDERED: NALOXONE HCL 0.4 MG/ML AMP IV PRN ×2 (12:15→18:30)
[2017-05-30] MEDS ORDERED: PROCHLORPERAZINE 25 MG SUPP RECTAL PRN (12:15)
[2017-05-30] MEDS ORDERED: SENNOSIDES 8.6 MG TAB PO PRN (12:15)
[2017-05-30] MEDS ORDERED: PROC10TA PO (12:27)
[2017-05-30] MEDS ORDERED: ZOFR8TAB PO (12:27)
[2017-05-30] MEDS ORDERED: RESP: ALBUTEROL 0.63 MG/3 ML NEB (PRN) NEB (12:30)
[2017-05-30] MEDS ORDERED: ALPRAZolam 0.25 MG TAB PO PRN (12:30)
[2017-05-30] MEDS: DOCUSATE SODIUM 50 MG/SENNA 8.6 MG TAB PO SCH ×2 (15:12→21:00)
[2017-05-30] MEDS: PRAVASTATIN SOD 40 MG TAB PO SCH (15:12)
[2017-05-30] MEDS: METOPROLOL TARTRATE 25 MG TAB PO SCH ×2 (15:12→21:00)
[2017-05-30] MEDS: HEPARIN SODIUM - SQ 10,000 UNITS/ML VIAL SQ SCH (15:12)
[2017-05-30] MEDS: SODIUM CHLOR 0.9% 1000 ML INJ 1,000 ML IV SCH ×2 (15:14→21:38)
[2017-05-30] MEDS: ONDANSETRON HCL 4 MG/2 ML VIAL IVP PRN (15:22)
[2017-05-30] MEDS ORDERED: MORPHINE SULFATE 4 MG/ML INJ IV PRN (18:30)
[2017-05-30] MEDS ORDERED: HYDROmorphone HCL PF 1 MG/ML VIAL IV PRN (18:30)
[2017-05-30] MEDS ORDERED: traMADol HCL 50 MG TAB PO PRN (18:30)
[2017-05-30] MEDS ORDERED: TEMAZEPAM 15 MG CAP PO ONE (22:30)
[2017-05-31] VITALS (7 sets, daily range): BP systolic 114–152; BP diastolic 57–76; PULSE 65–89; RESP 16–20; TEMP 97.6–99; O2SAT 95–98
[2017-05-31] MEDS: HEPARIN SODIUM - SQ 10,000 UNITS/ML VIAL SQ SCH ×2 (02:19→13:14)
[2017-05-31] MEDS: LEVOTHYROXINE SODIUM 112 MCG TAB PO SCH (05:39)
[2017-05-31 06:16] LABS: AUTOMATED NEUTROPHIL # 1.8 TH/MM3 (1.8-7.7); BASOPHIL % 0.4 % (0.0-2.0); HEMATOCRIT 28.8 % (39.0-51.0); HEMO FLAGS DIFF FINAL; LYMPH % 8.4 % (9.0-44.0); LYMPHOCYTE # 0.2 TH/MM3 (1.0-4.8); MEAN CELL VOLUME 88.2 FL (80.0-100.0); MEAN CORPUSCULAR HEMOGLOBIN 29.2 PG (27.0-34.0); MEAN CORPUSCULAR HGB CONC 33.1 % (32.0-36.0); MONO % 12.7 % (0.0-8.0); NEUT % 77.5 % (16.0-70.0); PLATELET COUNT 178 TH/MM3 (150-450); RED BLOOD COUNT 3.26 MIL/MM3 (4.50-5.90); WHITE BLOOD COUNT 2.4 TH/MM3 (4.0-11.0)
[2017-05-31 06:42] LABS: ANION GAP 7 MEQ/L (5-15); AST (GOT) 18 U/L (15-37); BICARBONATE 23.8 MEQ/L (21.0-32.0); BLOOD UREA NITROGEN 11 MG/DL (7-18); CHLORIDE 105 MEQ/L (98-107); GLOMERULAR FILTRATION RATE 72 ML/MIN (>89); POTASSIUM 3.8 MEQ/L (3.5-5.1); SODIUM (NA) 136 MEQ/L (136-145)
[2017-05-31 06:43] LABS: ALT (GPT) 17 U/L (12-78)
[2017-05-31 06:46] LABS: ALKALINE PHOSPHATASE 54 U/L (45-117); TOTAL BILIRUBIN ADULT 0.3 MG/DL (0.2-1.0)
[2017-05-31] MEDS: METOPROLOL TARTRATE 25 MG TAB PO SCH ×2 (08:59→20:51)
[2017-05-31] MEDS: PRAVASTATIN SOD 40 MG TAB PO SCH (08:59)
[2017-05-31] MEDS: DOCUSATE SODIUM 50 MG/SENNA 8.6 MG TAB PO SCH ×3 (09:00→20:51)
[2017-05-31] MEDS: DEXT 5%-NACL 0.45% 1000 ML INJ 1,000 ML IV SCH ×2 (09:00→18:20)
[2017-05-31] MEDS: SODIUM CHLORIDE 0.9% FLUSH 10 ML FLUSH IV FLUSH SCH ×2 (09:00→20:49)
--- NOTE | 2017-05-31 11:08 | EKG ---
Date Performed: 05/30/2017 Time Performed: 22:33:35 PTAGE: 86 years EKG: Sinus rhythm NONSPECIFIC T-WAVE ABNORMALITY BORDERLINE ECG PREVIOUS TRACING : 05/23/2017 11.02 Compared to prior tracing no significant change DOCTOR: Farhan Fitzpatrick Interpretating Date/Time 05/31/2017 11:07:01
--- NOTE | 2017-05-31 13:19 | HHI.FPPN ---
Problem Problem List: (1) Dehydration Plan: on IVF for rehydration (2) Vomiting Plan: resolved (3) Oral cancer Plan: Treatment on hold. Hem/onc consulted (4) Head and neck cancer Plan: Treatment on hold - oncology consulted Subjective Subjective 86 year old patient with h/o head and neck cancer --- was undergoing chemo/ radiation and developed nausea, vomiting and was unable to tolerate PO or his tube feeds and was admitted for dehydration. No sign of infection. On his exam today he states he does feel better and he is now tolerating his tube feeds and denies any further nausea or vomiting since admission. Denies stomach pain, no chest pain, no sob, no pain, states he is still very weak which is attributed to his chemo and radiation therapy and is not a new symptom at this time [facility] Objective Objective Laboratory Tests - Abnormals Test 05/31/17 05:30 White Blood Count 2.4 TH/MM3 Red Blood Count 3.26 MIL/MM3 Hemoglobin 9.5 GM/DL Hematocrit 28.8 % Mean Platelet Volume 6.9 FL Neutrophils (%) (Auto) 77.5 % Lymphocytes (%) (Auto) 8.4 % Monocytes (%) (Auto) 12.7 % Lymphocytes # (Auto) 0.2 TH/MM3 Estimat Glomerular Filtration 72 ML/MIN Rate Calcium Level 8.1 MG/DL Total Protein 6.0 GM/DL Albumin 2.4 GM/DL Vital Signs 05/30/17 05/30/17 05/30/17 05/31/17 13:39 16:35 20:00 00:00 Temp 98.2 98.3 98.3 97.9 Pulse 78 77 71 70 Resp 18 16 B/P 133/67 130/79 133/81 138/76 Pulse Ox 99 97 96 95 05/31/17 05/31/17 05/31/17 04:00 08:00 12:00 Temp 99.0 97.8 98.0 Pulse 68 76 65 Resp 16 16 16 B/P 127/73 134/70 132/63 Pulse Ox 98 97 98 INTAKE & OUTPUT 05/31/17 07:00 Intake Total 1900 ml Output Total 1050 ml Balance 850 ml Physical exam O. CONSTITUTIONAL/GEN: thin appearing, extreme dry mouth with cracked lips, no respiratory distress and does not seem to be in pain. Appears very deconditioned and weak EYES: conjunctiva normal, PERRLA, EOMI. ENT: Mouth dry, cracked lips and pharynx normal NECK: thyroid midline, large mass on the left side of the neck that is protuberant, nontender LUNGS: clear bilaterally with no extra breath sounds, no crackles or wheezing CARDIOVASCULAR: RR without murmur or gallop. No significant edema in the LE GI/ABD: soft without masses, without organomegaly., he has good bowel sounds throughout the abdomen today NEURO: No focal deficits. SKIN: color normal, no rashes noted PSYCH/MENTAL STATUS: Alert and oriented x 3. Assessment Assessment: (1) Dehydration Plan: Patient has received IVF rehydration and is now tolerating tube feeds with no nausea or vomiting. Clinically he appears to be improved. (2) Vomiting Plan: This has resolved with no further episodes of nausea or vomiting thus far (3) Oral cancer Plan: Treatment is on hold for this. Patients medical oncologist was consulted. (4) Head and neck cancer Plan: see above (5) Fluid, Electrolyte, Nutrition and Prophylaxis Plan: Labs reviewed and this appears to be adequate at this time Assessment 86 year old patient with head and neck cancer that appears to have has chemo related nausea and vomiting and was not able to tolerate PO intake of fluid or tube feeds was admitted to address hydration status. He is clinically improving today and now tolerating tube feeds without nausea/vomiting. His chemo and radiation therapy is currently on hold. PLAN PLAN Will wait to see if there are any additional recommendations from the patients medical oncologist. Would like to see the patient discharged back to home as soon as possible as he is at high risk for infection due to his immunocompromised state evidence by his low white count. He has support at home with his and good follow up with the oncologist. Patients was not available at the time the patient was evaluated. The patient will be assessed later in the day and care and support discussed with him, his and oncologist to make sure that he is clinically well enough to go home prior to discharge. For now will continue the IVF as ordered and tube feeds. Ptaria Blackwood MD May 31, 2017 13:19
--- NOTE | 2017-05-31 17:18 | OTSOAPIP ---
TIME SESSION COMPLETED: AM AND PM RECEIVED OCCUPATIONAL THERAPY ORDERS. ATTEMPTED TO SEE PATIENT TWICE THIS DATE. ON FIRST ATTEMPT PATIENT SOUNDLY SLEEPING, ABLE TO AWAKE AND PATIENT REQUESTED TO COME BACK AT A LATER TIME. ON SECOND ATTEMPT, PATIENT STILL IN BED AND REQUEST FOR THERAPIST TO RETURN TOMORROW HE DOES NOT FEEL GOOD. SPOKE WITH RN REGARDING PATIENT'S REFUSALS. WILL RE ATTEMPT TOMORROW. INTERDISCIPLINARY COMMUNICATION: REVIEWED ELECTRONIC MEDICAL RECORD, SPOKE WITH NURSING Therapist: Taylor Lovelace OTR/Narciso Signature on file
[2017-05-31] MEDS ORDERED: TEMAZEPAM 15 MG CAP PO PRN (21:30)
[2017-06-01] VITALS: BP 145/74; PULSE 72; RESP 17; TEMP 97.1; O2SAT 97
[2017-06-01] MEDS: HEPARIN SODIUM - SQ 10,000 UNITS/ML VIAL SQ SCH ×2 (01:37→13:00)
[2017-06-01] MEDS: DEXT 5%-NACL 0.45% 1000 ML INJ 1,000 ML IV SCH ×2 (03:30→12:09)
[2017-06-01 04:00] VITALS: BP 149/65; PULSE 67; RESP 17; TEMP 97.6; O2SAT 97
[2017-06-01] MEDS: LEVOTHYROXINE SODIUM 112 MCG TAB PO SCH (05:57)
--- NOTE | 2017-06-01 07:20 | MB ---
cc: JANET BERGERON M.D. DATE OF CONSULTATION 05/31/2017 REASON FOR CONSULTATION Consult requested by family practice resident for evaluation of metastatic oral cancer. HISTORY OF PRESENT ILLNESS Brandon is a pleasant 86-year-old male. The patient was in his usual status of health up until last year October. He went to a dentist for left molar tooth pain. During that examination, he was found to have growth on the left side. The biopsy shows squamous cell carcinoma. He had a CT scan of the maxillofacial area which showed an osseous defect in the left alveolar ridge with bilateral cervical lymphadenopathy. He had a PET scan which showed uptake in the left maxilla and bilateral cervical lymph nodes and thoracic lymph nodes and right paratracheal lymph node. The patient was referred to [facility]. He saw Dr. Jeb Parsons, ENT. Also a lesion was noted in the left hard palate. The patient underwent surgery on January 16. He had left maxillectomy and insertion of maxillary prosthesis. 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 There was no perineural invasion or lymphovascular invasion noted. The margins were negative. After the surgery, the patient was supposed to get radiation, but for some reason he did not follow up on instructions. In March, he had a CT scan of the soft tissue neck which showed extensive left cervical lymphadenopathy and moderate right cervical lymphadenopathy with the right parotid gland infiltration. The patient was referred to Dr. Layne radiation oncologist. A PET scan was done on April 24 which showed interval increase in the uptake in size in the bilateral cervical lymph nodes more on the left than the right. There was interval decreased uptake noted in the medial and right hilar lymph node and the distal esophagus consistent with inflammation. The patient was begun on combined concurrent radiation and weekly cisplatin chemotherapy on May 03. He had a PEG tube placed in on May 10 for nourishment. The patient had only two cycles of the chemotherapy. The patient became quite ill and last week radiation was held. I saw him two days ago and he was supposed to have chemotherapy, however, the patient was quite ill and chemotherapy was held. He was given hydration. He was lethargic. He went home after the hydration as he was feeling well. Yesterday he came in for radiation therapy and he was found to be too ill by Dr. Mcmahan, radiation oncologist. The patient was referred to the emergency room for further evaluation. I received a call from the ER physician regarding his condition. We decided that the patient should be admitted for further treatment. The patient admitted by the [facility] resident and I have been asked to see him for further evaluation. The patient has been getting hydration since he has been in the hospital. This morning, the patient appears to be much better than when I saw him two days ago. He is he still having problem with the mandibular prosthesis. He is able to swallow some, but not much. He is still using PEG tube for nourishment. He states that he feels somewhat better, but he does not want to continue with the chemotherapy. REVIEW OF SYSTEMS The rest of the review of systems is unremarkable. PAST MEDICAL HISTORY 1. Coronary artery disease 2. Hypercholesterolemia 3. Hypothyroidism 4. Anemia 5. Anxiety 6. 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 PAST SURGICAL HISTORY 1. Multiple biopsies of the growth in the month and underwent surgery. 2. 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 3. Cataract surgery ALLERGIES PERCOCET MEDICATIONS Please see EMR. FAMILY HISTORY Mother from natural causes. Father from a stroke. He has one brother, three sons and no daughters. SOCIAL HISTORY The patient is , lives with his . He never smoked cigarettes. He used to drink alcohol in the past. PHYSICAL EXAM This is a well-developed elderly, chronically ill-appearing white male in no apparent distress. VITAL SIGNS: Temperature 97.8, heart is 76, blood pressure 134/70. O2 saturation 97% on room air. HEENT: PERRLA, EOMI, oral mucosa is dry with prosthesis noted. NECK: Bilateral cervical lymphadenopathy noted more on the left than the right. LUNGS: Decreased breath sounds on both sides. HEART: Regular rate and rhythm. ABDOMEN: Soft. PEG tube noted. EXTREMITIES: No pedal edema. NEUROLOGIC: Awake, alert, oriented times three. SKIN: No significant lesions are noted. ASSESSMENT 1. 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 2. Dehydration 3. Failure to thrive PLAN I have reviewed his available records and I have discussed with the patient regarding his condition. The patient has been getting hydration and he is feeling better. The patient has dehydration due to intractable nausea and some vomiting. Radiation was held last week and the chemotherapy is also put on hold this week. I do not think the patient can tolerate combined concurrent radiation and chemotherapy. I have suggested no more chemotherapy. However when he gets stronger, he could resume the radiation therapy. The patient has been getting antiemetics and hydration and definitely he looks much better than when I saw him two days ago. My recommendation is to continue the present treatment plan. I expect him to stay in the hospital until Monday and then he could be discharged. I reviewed his blood test. The CBC showed a white count of 2.4, hemoglobin 9.5, hematocrit is 28.8, platelet count is 178. The comprehensive metabolic profile is normal except the GFR is 72, total protein is 6, albumin is 2.4. The patient is nutritionally depleted. Recommendation is to continue with PEG tube feedings. He had a blood culture which is negative. The urinalysis is negative. Chest x-ray is also negative. Further recommendations based on his hospital stay. Thank you for asking my opinion. Lisandro Bergeron MD /DON /4:59 PM /6:58 AM MTDHenry
[2017-06-01 07:37] LABS: BICARBONATE 24.8 MEQ/L (21.0-32.0); POTASSIUM 4.3 MEQ/L (3.5-5.1)
[2017-06-01 08:00] VITALS: BP 119/61; PULSE 70; RESP 18; TEMP 97.4; O2SAT 99
[2017-06-01] MEDS: SODIUM CHLORIDE 0.9% FLUSH 10 ML FLUSH IV FLUSH SCH ×2 (09:00→21:00)
[2017-06-01] MEDS: PRAVASTATIN SOD 40 MG TAB PO SCH (09:00)
[2017-06-01] MEDS: DOCUSATE SODIUM 50 MG/SENNA 8.6 MG TAB PO SCH ×2 (09:00→23:34)
[2017-06-01] MEDS: METOPROLOL TARTRATE 25 MG TAB PO SCH ×2 (09:00→23:33)
--- NOTE | 2017-06-01 10:43 | HHI.FPPN ---
Subjective Remarks Patient was seen and evaluated this morning. He says he continues to feel weak; states that he was unable to get out of bed during the night to urinate because he "couldn't move." He admits to pain in his mouth. He denies chest pain, abdominal pain and general body pain, heart palpitations, shortness of breath, nausea, vomiting, diarrhea and constipation. He states that he has been tolerating tube feeds and admits to a bowel movement yesterday. Patient mentions again today that he no longer wants to undergo chemotherapy and radiation treatments. (Denisa Porter MD R1) Objective Vitals Vital Signs Date Time Temp Pulse Resp B/P Pulse Ox O2 Delivery O2 Flow Rate FiO2 06/01/17 08:00 97.4 70 18 119/61 99 06/01/17 04:00 97.6 67 17 149/65 97 06/01/17 00:00 97.1 72 17 145/74 97 05/31/17 20:00 97.6 70 17 152/70 97 05/31/17 17:00 98.0 89 20 121/71 98 05/31/17 16:00 98.1 68 18 114/57 96 05/31/17 12:00 98.0 65 16 132/63 98 I/O 05/31/17 05/31/17 05/31/17 06/01/17 06/01/17 06/01/17 07:00 15:00 23:00 07:00 15:00 23:00 Intake Total 860 ml 0 ml 2360 ml 920 ml Output Total 600 ml 275 ml 700 ml Balance 260 ml -275 ml 2360 ml 220 ml Intake Oral 0 ml 0 ml IV Total 800 ml 800 ml 800 ml Tube Feeding 1380 ml 120 ml Other 60 ml 180 ml Output Urine Total 600 ml 275 ml 700 ml # Voids 2 1 # Bowel Movements 0 0 (Denisa Porter MD R1) Result Diagram: 05/31/17 0530 06/01/17 0550 Imaging Last Impressions Chest X-Ray 05/30/17918 Signed Impressions: Service Date/Time: Tuesday, May 30, 2017 09:27 - CONCLUSION: 1. No acute abnormality or significant interval change. Joesph Damico MD Objective Remarks GENERAL: This is a thin, tired-looking patient, in no apparent distress. SKIN: Redness around neck and mouth area much improved. Ecchymoses on upper and lower extremities. Cool and dry. HEAD: Atraumatic. Normocephalic. No temporal or scalp tenderness. EYES: Pupils equal round and reactive. Extraocular motions intact. No scleral icterus. No injection or drainage. ENT: Nose without bleeding, purulent drainage or septal hematoma. Lips appear dry and cracked. Lesions noted on tongue. White patches appreciated on right side of roof of mouth. Left side of roof of mouth has opening into nasal cavity. Airway patent. NECK: Large, nontender lump noted on left side of neck. Trachea midline. No JVD. CARDIOVASCULAR: Regular rate and rhythm without gallops, or rubs. RESPIRATORY: Clear to auscultation. Breath sounds equal bilaterally. No wheezes , rales, or rhonchi. GASTROINTESTINAL: Abdomen soft, non-tender, nondistended. No hepato-splenomegaly , or palpable masses. No guarding. MUSCULOSKELETAL: Extremities without clubbing, cyanosis, or edema. No joint tenderness, effusion, or edema noted. No calf tenderness. NEUROLOGICAL: Awake and alert. Cranial nerves II through XII intact. Motor and sensory grossly within normal limits. Five out of 5 muscle strength in all muscle groups. Normal speech. Medications and IVs Current Medications Medications (Trade) Dose Ordered Sig/Wellington Route Start Time Stop Time Status Last Admin (NS Flush) 2 ml UNSCH PRN IV FLUSH 05/30/17 12:15 (NS Flush) 2 ml BID IV FLUSH 05/30/17 12:15 05/30/17 12:15 (Tylenol) 650 mg Q4H PRN PO 05/30/17 12:15 (Zofran Inj) 4 mg Q6H PRN IVP 05/30/17 12:15 05/30/17 15:22 (Compazine Supp) 25 mg Q12H PRN RECTAL 05/30/17 12:15 (Heparin Inj) 5,000 units Q12H SQ 05/30/17 13:00 06/01/17 01:37 (Narcan Inj) 0.4 mg UNSCH PRN IV 05/30/17 12:15 (Caitlyn-Colace) 1 tab BID PO 05/30/17 12:15 05/31/17 20:51 (Milk Of Magnesia Liq) 30 ml Q12H PRN PO 05/30/17 12:15 05/31/17 09:30 (Senokot) 17.2 mg Q12H PRN PO 05/30/17 12:15 (Dulcolax Supp) 10 mg DAILY PRN RECTAL 05/30/17 12:15 (Lactulose Liq) 30 ml DAILY PRN PO 05/30/17 12:15 (Xanax) 0.25 mg Q4H PRN PO 05/30/17 12:30 (Pravachol) 40 mg DAILY PO 05/30/17 12:30 05/31/17 08:59 (Lopressor) 25 mg BID PO 05/30/17 12:30 05/31/17 20:51 (Synthroid) 112 mcg DAILY@06 PO 05/31/17 06:00 06/01/17 05:57 (Tylenol) 650 mg Q6H PRN PO 05/30/17 18:30 (Morphine Inj) 4 mg Q3H PRN IV 05/30/17 18:30 (Dilaudid Pf Inj) 0.5 mg Q3H PRN IV 05/30/17 18:30 (Ultram) 50 mg Q4H PRN PO 05/30/17 18:30 Naloxone HCl 0.4 mg 0.4 mg UNSCH PRN IV 05/30/17 18:30 (D5W-1/2 NS 1000 ml Inj) 1,000 ml @ 100 mls/hr Q10H IV 05/31/17 07:00 06/01/17 03:30 (Restoril) 15 mg HS PRN PO 05/31/17 21:30 06/01/17 01:37 (Denisa Porter MD R1) Urinary Catheter: No (Denisa Porter MD R1) Vascular Central Line Catheter: No (Denisa Porter MD R1) A/P Assessment and Plan Patient is an 86 year old male, 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 He has been feeling nauseous and more fatigued than baseline for the last couple of weeks. He was admitted to the family medicine team with suspected dehydration. Discharge Planning As per Dr. Bergeron, pt should receive further hydration and, pending clinical improvement, could be discharged on Monday. (Denisa Porter MD R1) Attending Attestation Patient seen and examined. Case reviewed and discussed with the resident team. Agree with plan of care as discussed with me and documented in the resident note. (Patria Blackwood MD) Problem List: (1) Vomiting Status: Acute Plan: Etiology: * Likely adverse effects to chemotherapy and radiation. * Bowel obstruction unlikely - Abdomen/pelvis CT on 05/23/17 showed no acute findings; gastrostomy tube in stomach; nonobstructing small renal calculi; colonic diverticulosis. Continue Zofran 4mg q6h PRN IV - given once on 05/30 at 15:22. Continue Prochlorperazine 25mg q12h PRN rectal - has not been administered during this admission. Diet Tube Feeds - tolerating well. * Tube feeds called [facility] per . (2) Dehydration Status: Acute Plan: Etiology: * Prolonged vomiting (see above). Switched to Dextrose/Sodium Chloride 1,000 at 100mls/hr q10h IV - pt blood sugar below 100. * Received NS Bolus; 500ml at 500mls/hr once IV in the ED upon arrival. Monitor electrolytes. Na low (132) at admission. Stable 136-135. (3) Oral cancer Status: Acute Plan: Oral cancer s/p cancer resection on January 16, 2017. Currently undergoing chemotherapy and radiation. Plan to hold chemotherapy but continue radiation once patient is feeling better. Ordered pain medication PRN - not needed up to this point; patient has not complained of pain this admission: * Tylenol 650mg q6h PO (Pain 1-2) * Tramadol HCL 50mg q4h PO (Pain 3-5) * Morphine 4mg q3h IV (Pain 6-10) * Dilaudid 0.5mg q3h IV (Breakthrough pain) Ordered stool softener PRN. (4) Fluid, Electrolyte, Nutrition and Prophylaxis Status: Acute Plan: Fluid: * Dextrose/NaCl 1,000ml at 100mls/hr q10h IV. Electrolytes: * Monitor electrolytes. Nutrition * Tube Feeds as tolerated * Tube Feed: [facility] as per . DVT Prophylaxis: * Heparin 5,000 units q12h SQ GI Prophylaxis: * Not indicated. (Denisa Porter MD R1) Problem Qualifiers (1) Vomiting: Denisa Porter MD R1 Jun 01, 2017 10:43 Patria Blackwood MD Jun 01, 2017 17:07
--- NOTE | 2017-06-01 11:19 | HHI.DCPOC ---
Discharge Care Plan Diagnosis: (1) Oral cancer (2) Vomiting (3) Dehydration Goals to Promote Your Health * To prevent worsening of your condition and complications * To maintain your health at the optimal level Directions to Meet Your Goals Take your medications as prescribed Follow your dietary instruction Follow activity as directed Keep your appointments as scheduled Take your immunizations and boosters as scheduled If your symptoms worsen call your PCP, if no PCP go to Urgent Care Center or Emergency Room Smoking is Dangerous to Your Health. Avoid second hand smoke Call the 24-hour hour crisis hotline for domestic abuse at Denisa Porter MD R1 Jun 01, 2017 11:19
[2017-06-01 12:22] VITALS: BP 124/61; PULSE 64; RESP 18; TEMP 97.7; O2SAT 98
[2017-06-01] MEDS: ONDANSETRON HCL 4 MG/2 ML VIAL IVP PRN (13:08)
--- NOTE | 2017-06-01 13:37 | OTSOAPIP ---
TIME SESSION COMPLETED: AM REATTEMPTED TO SEE PATIENT. PATIENT WAS SOUNDLY SLEEPING. PATIENT ABLE TO AWAKE HOWEVER CONTINUOUSLY SHAKES HEAD NO AND REFUSES EVALUATION. REPORTS HE DOES OT FEEL WELL. SPOKE WITH RN DEANNA WHO REPORTS SHE WILL SPEAK WITH PHYSICIAN. WILL REATTEMPT TOMORROW. INTERDISCIPLINARY COMMUNICATION: REVIEWED ELECTRONIC MEDICAL RECORD, SPOKE WITH NURSING Therapist: Taylor Lovelace, OTR/L Signature on file
--- NOTE | 2017-06-01 14:08 | PD.ONC.PN ---
Subjective Subjective Remarks Afebrile overnight. Patient vomiting again this afternoon. Denies pain, just states he feels nauseated. at bedside. Objective Data Date Time Temp Pulse Resp B/P Pulse Ox O2 Delivery O2 Flow Rate FiO2 06/01/17 12:22 97.7 64 18 124/61 98 06/01/17 08:00 97.4 70 18 119/61 99 06/01/17 04:00 97.6 67 17 149/65 97 06/01/17 00:00 97.1 72 17 145/74 97 05/31/17 20:00 97.6 70 17 152/70 97 05/31/17 17:00 98.0 89 20 121/71 98 05/31/17 16:00 98.1 68 18 114/57 96 Result Diagram: 05/31/17 0530 06/01/17 0550 Laboratory Results Laboratory Tests Test 06/01/17 05:50 Sodium Level 135 MEQ/L Potassium Level 4.3 MEQ/L Chloride Level 103 MEQ/L Carbon Dioxide Level 24.8 MEQ/L Anion Gap 7 MEQ/L Blood Urea Nitrogen 9 MG/DL Creatinine 0.93 MG/DL Estimat Glomerular Filtration 77 ML/MIN Rate Random Glucose 84 MG/DL Calcium Level 7.8 MG/DL Culture Results Microbiology Date/Time Procedure Status Source Growth 05/30/17 09:40 Aerobic Blood Culture - Preliminary Resulted Blood Peripheral NO GROWTH IN 2 DAYS 05/30/17 09:40 Anaerobic Blood Culture - Preliminary Resulted Blood Peripheral NO GROWTH IN 2 DAYS 05/30/17 11:10 Aerobic Blood Culture - Preliminary Resulted Blood Peripheral NO GROWTH IN 2 DAYS 05/30/17 11:10 Anaerobic Blood Culture - Preliminary Resulted Blood Peripheral NO GROWTH IN 2 DAYS Administered Medications Medications (Trade) Dose Ordered Sig/Wellington Route PRN Reason Start Time Stop Time Status Last Admin Dose Admin Sodium Chloride (NS Flush) 2 ml BID IV FLUSH 05/30/17 12:15 05/30/17 12:15 Ondansetron HCl (Zofran Inj) 4 mg Q6H PRN IVP NAUSEA OR VOMITING 05/30/17 12:15 06/01/17 13:08 Heparin Sodium (Porcine) (Heparin Inj) 5,000 units Q12H SQ 05/30/17 13:00 06/01/17 13:00 Senna/Docusate Sodium (Caitlyn-Colace) 1 tab BID PO 05/30/17 12:15 06/01/17 09:00 Magnesium Hydroxide (Milk Of Radha Meeks) 30 ml Q12H PRN PO MILD - MODERATE CONSTIPATION 05/30/17 12:15 05/31/17 09:30 Pravastatin Sodium (Pravachol) 40 mg DAILY PO 05/30/17 12:30 06/01/17 09:00 Metoprolol Tartrate (Lopressor) 25 mg BID PO 05/30/17 12:30 06/01/17 09:00 Levothyroxine Sodium 112 mcg 112 mcg DAILY@06 PO 05/31/17 06:00 06/01/17 05:57 Dextrose/Sodium Chloride (D5W-1/2 NS 1000 ml Inj) 1,000 ml @ 100 mls/hr Q10H IV 05/31/17 07:00 06/01/17 12:09 Temazepam (Restoril) 15 mg HS PRN PO SLEEP 05/31/17 21:30 06/01/17 01:37 Objective Remarks GENERAL: Ill appearing male lying supine in bed, resting. SKIN: Warm and dry. HEAD: Normocephalic. EYES: No injection or drainage. NECK: Supple, trachea midline. CARDIOVASCULAR: Regular rate and rhythm RESPIRATORY: Breath sounds equal bilaterally. No accessory muscle use. GASTROINTESTINAL: Abdomen soft, G-tube in place, clamped, nondistended. EXTREMITIES: No cyanosis MUSCULOSKELETAL: Adequate muscle tone. NEUROLOGICAL: awake, fatigued. Assessment/Plan Problem List: (1) Vomiting Status: Acute Plan: --on IVF (D51/2NS) 06/01: start scheduled Zofran. add compazine for breakthrough nausea. (2) Head and neck cancer Status: Acute Plan: --once clinically stronger, he could resume the radiation therapy. does not want to resume chemotherapy History: --squamous cell carcinoma. --January 16-->left maxillectomy and insertion of maxillary prosthesis. PET scan, April 24-->showed interval increase in the uptake in size in the bilateral cervical lymph nodes more on the left than the right. There was interval decreased uptake noted in the medial and right hilar lymph node and the distal esophagus consistent with inflammation. The --May 03--started combined concurrent radiation and weekly cisplatin chemotherapy on May 03. --May 10--PEG tube placed --had only two cycles of the chemotherapy. (3) Malnourished Status: Acute Plan: --on [facility] tube feeds. 12 oz 4 times daily. Packaged per patient's who brings from home --patient is vegan Assessment 86y/o female with metastatic oral cancer. 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 Attending Statement c/o N/V antiemetics Hydration. considering hospice. will follow. Problem Qualifiers (1) Vomiting: Tamia Abbott Jun 01, 2017 14:08 Odalys Bergeron MD Jun 01, 2017 22:48
[2017-06-01 16:00] VITALS: BP 144/64; PULSE 61; RESP 16; TEMP 99.1; O2SAT 99
[2017-06-01] MEDS: PROCHLORPERAZINE INJ 10 MG/2 ML VIAL IV PUSH PRN (17:32)
[2017-06-01 20:00] VITALS: BP 140/73; PULSE 75; RESP 16; TEMP 96.9; O2SAT 98
[2017-06-01] MEDS: ONDANSETRON HCL 4 MG/2 ML VIAL IVP SCH (23:33)
[2017-06-02] VITALS: BP 158/89; PULSE 83; RESP 16; TEMP 97.1; O2SAT 98
[2017-06-02] MEDS: ONDANSETRON HCL 4 MG/2 ML VIAL IVP SCH ×2 (01:00→05:43)
[2017-06-02] MEDS: HEPARIN SODIUM - SQ 10,000 UNITS/ML VIAL SQ SCH (02:01)
[2017-06-02] MEDS: DEXT 5%-NACL 0.45% 1000 ML INJ 1,000 ML IV SCH (02:01)
[2017-06-02 04:00] VITALS: BP 142/87; PULSE 78; RESP 16; TEMP 97.6; O2SAT 98
[2017-06-02] MEDS: LEVOTHYROXINE SODIUM 112 MCG TAB PO SCH (05:43)
[2017-06-02 08:00] VITALS: BP 134/65; PULSE 69; RESP 16; TEMP 97.3; O2SAT 97
[2017-06-02] MEDS: DOCUSATE SODIUM 50 MG/SENNA 8.6 MG TAB PO SCH (09:00)
--- NOTE | 2017-06-02 09:07 | PD.ONC.PN ---
Subjective Subjective Remarks Afebrile overnight. No further vomiting yesterday or last night. He had BM overnight. Objective Data Date Time Temp Pulse Resp B/P Pulse Ox O2 Delivery O2 Flow Rate FiO2 06/02/17 08:00 97.3 69 16 134/65 97 06/02/17 04:00 97.6 78 16 142/87 98 06/02/17 00:00 97.1 83 16 158/89 98 06/01/17 20:00 96.9 75 16 140/73 98 06/01/17 16:00 99.1 61 16 144/64 99 06/01/17 12:22 97.7 64 18 124/61 98 06/02/17 06/02/17 06/02/17 07:00 15:00 23:00 Intake Total 1200 ml Output Total 300 ml Balance 900 ml Result Diagram: 05/31/17 0530 06/01/17 0550 Culture Results Microbiology Date/Time Procedure Status Source Growth 05/30/17 09:40 Aerobic Blood Culture - Preliminary Resulted Blood Peripheral NO GROWTH IN 2 DAYS 05/30/17 09:40 Anaerobic Blood Culture - Preliminary Resulted Blood Peripheral NO GROWTH IN 2 DAYS 05/30/17 11:10 Aerobic Blood Culture - Preliminary Resulted Blood Peripheral NO GROWTH IN 2 DAYS 05/30/17 11:10 Anaerobic Blood Culture - Preliminary Resulted Blood Peripheral NO GROWTH IN 2 DAYS Administered Medications Medications (Trade) Dose Ordered Sig/Wellington Route PRN Reason Start Time Stop Time Status Last Admin Dose Admin Sodium Chloride (NS Flush) 2 ml BID IV FLUSH 05/30/17 12:15 05/30/17 12:15 Heparin Sodium (Porcine) (Heparin Inj) 5,000 units Q12H SQ 05/30/17 13:00 06/02/17 02:01 Senna/Docusate Sodium (Caitlyn-Colace) 1 tab BID PO 05/30/17 12:15 06/01/17 23:34 Magnesium Hydroxide (Milk Of Magnesia Liq) 30 ml Q12H PRN PO MILD - MODERATE CONSTIPATION 05/30/17 12:15 05/31/17 09:30 Pravastatin Sodium (Pravachol) 40 mg DAILY PO 05/30/17 12:30 06/01/17 09:00 Metoprolol Tartrate (Lopressor) 25 mg BID PO 05/30/17 12:30 06/01/17 23:33 Levothyroxine Sodium 112 mcg 112 mcg DAILY@06 PO 05/31/17 06:00 06/02/17 05:43 Dextrose/Sodium Chloride (D5W-1/2 NS 1000 ml Inj) 1,000 ml @ 100 mls/hr Q10H IV 05/31/17 07:00 06/02/17 02:01 Temazepam (Restoril) 15 mg HS PRN PO SLEEP 05/31/17 21:30 06/01/17 01:37 Ondansetron HCl (Zofran Inj) 4 mg Q6H IVP 06/01/17 19:00 06/02/17 05:43 Prochlorperazine Edisylate (Compazine Inj) 5 mg Q6H PRN IV PUSH nausea/vomiting 06/01/17 14:15 06/01/17 17:32 Objective Remarks GENERAL: Elderly male, weak and chronically ill appearing SKIN: Warm and dry. HEAD: Normocephalic. dried blood on lips EYES: No scleral icterus. No injection or drainage. NECK: Supple, trachea midline. CARDIOVASCULAR: Regular rate and rhythm RESPIRATORY: Breath sounds equal bilaterally. No accessory muscle use. GASTROINTESTINAL: Abdomen soft, PEG tube clamped, nondistended. EXTREMITIES: No cyanosis NEUROLOGICAL: No obvious focal deficit. Awake, alert, and oriented x3. Assessment/Plan Problem List: (1) Head and neck cancer Status: Acute Plan: 06/02: had long conversation with patient and at bedside. the patient does not want to resume chemotherapy or radiation. asked if there would be any alternative medications. we discussed that there are other medications such as Opdivo, but those medications are static and not cidal ( they may prevent further growth of cancer but won't destroy). patient and are interested in hearing more about Opdivo. will arrange follow up in clinic once discharged. initially patient was asking to be discharged today, but then stated he would be willing to stay over the weekend for more hydration and IV anti-emetic therapy. hopeful for improvement with discharge by Monday. History: --squamous cell carcinoma. --January 16-->left maxillectomy and insertion of maxillary prosthesis. PET scan, April 24-->showed interval increase in the uptake in size in the bilateral cervical lymph nodes more on the left than the right. There was interval decreased uptake noted in the medial and right hilar lymph node and the distal esophagus consistent with inflammation. The --May 03--started combined concurrent radiation and weekly cisplatin chemotherapy on May 03. --May 10--PEG tube placed --had only two cycles of the chemotherapy. (2) Vomiting Status: Acute Plan: --on IVF (D51/2NS) --Zofran scheduled with compazine for breakthrough (3) Malnourished Status: Acute Plan: --on [facility] tube feeds. 12 oz 4 times daily. Packaged per patient's who brings from home --patient is vegan Assessment 86y/o female with metastatic oral cancer. 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 Attending Statement feels miserable. Does not want any more treatment fo rhis cancer. Recommend hospice. He agrees. Consult hospice. D/C when arrangements are made with hospice. Problem Qualifiers (1) Vomiting: Tamia Abbott Jun 02, 2017 09:07 Odalys Bergeron MD Jun 02, 2017 10:29
[2017-06-02] MEDS: PRAVASTATIN SOD 40 MG TAB PO SCH (10:15)
[2017-06-02] MEDS: METOPROLOL TARTRATE 25 MG TAB PO SCH (10:15)
[2017-06-02] MEDS: PROCHLORPERAZINE INJ 10 MG/2 ML VIAL IV PUSH PRN (10:15)
[2017-06-02] MEDS: SODIUM CHLORIDE 0.9% FLUSH 10 ML FLUSH IV FLUSH SCH (10:16)
--- NOTE | 2017-06-02 11:08 | HHI.FPPN ---
Subjective Remarks Patient was seen and evaluated this morning. He says he feels well but repeatedly emphasizes that he is a very sick man. He states that he vomited once yesterday afternoon but tolerated the tube feed during the night. He has not received his morning's tube feed. He continues to feel weak. He has to be seated to wash himself and brush his teeth. He denies chest, abdominal and general body pains, heart palpitations, shortness of breath, nausea/vomiting, diarrhea and constipation. He had one bowel movement last night. He urinates frequently. (Denisa Porter MD R1) Objective Vitals Vital Signs Date Time Temp Pulse Resp B/P Pulse Ox O2 Delivery O2 Flow Rate FiO2 06/02/17 08:00 97.3 69 16 134/65 97 06/02/17 04:00 97.6 78 16 142/87 98 06/02/17 00:00 97.1 83 16 158/89 98 06/01/17 20:00 96.9 75 16 140/73 98 06/01/17 16:00 99.1 61 16 144/64 99 06/01/17 12:22 97.7 64 18 124/61 98 I/O 06/01/17 06/01/17 06/01/17 06/02/17 06/02/17 06/02/17 07:00 15:00 23:00 07:00 15:00 23:00 Intake Total 920 ml 1852 ml 1200 ml Output Total 700 ml 650 ml 300 ml Balance 220 ml 1852 ml -650 ml 900 ml IV Total 800 ml 1152 ml 1200 ml Tube Feeding 120 ml 500 ml Other 200 ml Output Urine Total 700 ml 650 ml 300 ml # Voids 1 3 # Bowel Movements 2 (Denisa Porter MD R1) Result Diagram: 05/31/17 0530 06/01/17 0550 Imaging Last Impressions Chest X-Ray 05/30/17 09 Signed Impressions: Service Date/Time: Tuesday, May 30, 2017 09:27 - CONCLUSION: 1. No acute abnormality or significant interval change. Joesph Damico MD Objective Remarks GENERAL: This is a thin, tired-looking patient, in no apparent distress. SKIN: Redness around neck and mouth area much improved. Ecchymoses on upper and lower extremities. Cool and dry. HEAD: Atraumatic. Normocephalic. No temporal or scalp tenderness. EYES: Pupils equal round. Extraocular motions intact. No scleral icterus. No injection or drainage. ENT: Nose without bleeding, purulent drainage or septal hematoma. Lips appear dry and cracked - improved. Lesions noted on tongue. Left side of roof of mouth has opening into nasal cavity. Airway patent. NECK: Large, nontender lump noted on left side of neck. Trachea midline. No JVD. CARDIOVASCULAR: Regular rate and rhythm without gallops, or rubs. RESPIRATORY: Clear to auscultation. Breath sounds equal bilaterally. No wheezes , rales, or rhonchi. GASTROINTESTINAL: Abdomen soft, non-tender, nondistended. No hepato-splenomegaly , or palpable masses. No guarding. MUSCULOSKELETAL: Extremities without clubbing, cyanosis, or edema. No joint tenderness, effusion, or edema noted. No calf tenderness. NEUROLOGICAL: Awake and alert. Motor and sensory grossly within normal limits. Normal speech. Medications and IVs Current Medications Medications (Trade) Dose Ordered Sig/[place] Route Start Time Stop Time Status Last Admin (NS Flush) 2 ml UNSCH PRN IV FLUSH 05/30/17 12:15 (NS Flush) 2 ml BID IV FLUSH 05/30/17 12:15 06/02/17 10:16 (Tylenol) 650 mg Q4H PRN PO 05/30/17 12:15 (Heparin Inj) 5,000 units Q12H SQ 05/30/17 13:00 06/02/17 02:01 (Narcan Inj) 0.4 mg UNSCH PRN IV 05/30/17 12:15 (Caitlyn-Colace) 1 tab BID PO 05/30/17 12:15 06/02/17 09:00 (Milk Of Magnesia Liq) 30 ml Q12H PRN PO 05/30/17 12:15 05/31/17 09:30 (Senokot) 17.2 mg Q12H PRN PO 05/30/17 12:15 (Dulcolax Supp) 10 mg DAILY PRN RECTAL 05/30/17 12:15 (Lactulose Liq) 30 ml DAILY PRN PO 05/30/17 12:15 (Xanax) 0.25 mg Q4H PRN PO 05/30/17 12:30 (Pravachol) 40 mg DAILY PO 05/30/17 12:30 06/02/17 10:15 (Lopressor) 25 mg BID PO 05/30/17 12:30 06/02/17 10:15 (Synthroid) 112 mcg DAILY@06 PO 05/31/17 06:00 06/02/17 05:43 (Tylenol) 650 mg Q6H PRN PO 05/30/17 18:30 (Morphine Inj) 4 mg Q3H PRN IV 05/30/17 18:30 Naloxone HCl 0.4 mg 0.4 mg UNSCH PRN IV 05/30/17 18:30 (D5W-1/2 NS 1000 ml Inj) 1,000 ml @ 100 mls/hr Q10H IV 05/31/17 07:00 06/02/17 02:01 (Restoril) 15 mg HS PRN PO 05/31/17 21:30 06/01/17 01:37 (Zofran Inj) 4 mg Q6H IVP 06/01/17 19:00 06/02/17 05:43 (Compazine Inj) 5 mg Q6H PRN IV PUSH 06/01/17 14:15 06/02/17 10:15 (Denisa Porter MD R1) Urinary Catheter: No (Denisa Porter MD R1) Vascular Central Line Catheter: No (Denisa Porter MD R1) A/P Assessment and Plan Patient is an 86 year old male, 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 He has been feeling nauseous and more fatigued than baseline for the last couple of weeks. He was admitted to the family medicine team with suspected dehydration. Discharge Planning Possible discharge today pending patient tolerating tube feeds. (Denisa Porter MD R1) Attending Attestation The exam, history, and the medical decision-making described in the above note were completed with the assistance of the resident physician. I reviewed and agree with the findings presented. I attest that I had a [id number] encounter with the patient on the same day, and personally performed and documented my assessment and findings in the medical record. Addendum: This patient is now going to be admitted to Hospice. This is pending. Potential d/c to Hospice care center today (Patria Blackwood MD ) Problem List: (1) Vomiting Status: Acute Plan: Etiology: * Likely adverse effects to chemotherapy and radiation. * Bowel obstruction unlikely - Abdomen/pelvis CT on 05/23/17 showed no acute findings; gastrostomy tube in stomach; nonobstructing small renal calculi; colonic diverticulosis. Continue Zofran 4mg q6h IV - last administered 05:43 on 06/02/17. Continue Prochlorperazine 5mg q6h PRN IVP - last administered 10:15 on 06/02/17. Diet Tube Feeds - tolerating last night's feed. * Tube feeds called [facility] per . (2) Dehydration Status: Acute Plan: Etiology: * Prolonged vomiting (see above). Switched to Dextrose/Sodium Chloride 1,000 at 100mls/hr q10h IV - pt blood sugar below 100. * Received NS Bolus; 500ml at 500mls/hr once IV in the ED upon arrival. Monitor electrolytes. Na low (132) at admission. Stable 136-135. (3) Oral cancer Status: Acute Plan: Oral cancer s/p cancer resection on January 16, 2017. Currently undergoing chemotherapy and radiation. Plan to hold chemotherapy but continue radiation once patient is feeling better. Ordered pain medication PRN - not needed up to this point; patient has not complained of pain this admission. Ordered stool softener PRN. (4) Fluid, Electrolyte, Nutrition and Prophylaxis Status: Acute Plan: Fluid: * Dextrose/NaCl 1,000ml at 100mls/hr q10h IV. Electrolytes: * Monitor electrolytes. Nutrition * Tube Feeds as tolerated * Tube Feed: [facility] as per . DVT Prophylaxis: * Heparin 5,000 units q12h SQ GI Prophylaxis: * Not indicated. (Denisa Porter MD R1) Problem Qualifiers (1) Vomiting: Denisa Porter MD R1 Jun 02, 2017 11:08 Patria Blackwood MD Jun 02, 2017 15:42
[2017-06-02 11:21] LABS: POTASSIUM 4.1 MEQ/L (3.5-5.1)
[2017-06-02 12:00] VITALS: BP 128/66; PULSE 65; RESP 16; TEMP 97.6; O2SAT 100
--- NOTE | 2017-06-02 13:14 | OTSOAPIP ---
TIME SESSION COMPLETED: AM REATTEMPTED TO SEE PATIENT. THIS IS THE THIRD ATTEMPT. PATIENT WAS SOUNDLY SLEEPING, SPOUSE PRESENT IN ROOM. EDUCATED PATIENT'S ON ROLE OF OCCUPATIONAL THERAPY. PATIENT CONTINUES TO REFUSE AND PATIENT'S SPOUSE IS OK WITH REFUSAL. PATIENT IS LIKELY BEING DISCHARGED THIS DATE. OT WILL SIGN OFF INTERDISCIPLINARY COMMUNICATION: REVIEWED ELECTRONIC MEDICAL RECORD Therapist: Taylor Lovelace OTR/L Signature on file
[2017-06-02 16:00] VITALS: BP 126/60; PULSE 71; RESP 16; TEMP 98.6; O2SAT 98
--- NOTE | 2017-06-03 09:58 | HHI.DS ---
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 He has been feeling nauseous and more fatigued than baseline for the last couple of weeks. Of note, baseline are short walks, sitting on the computer with naps throughout the day. was able to syringe feed in addition to tube feedings prior to two weeks ago. Last week Monday, patient came to the ED due to abdominal pain and nausea/ vomiting. He was given fluids, anti-emetics, and morphine. Patient was discharged later in the day. He felt fine for the rest of the week until Monday, when patient threw up all afternoon. alternated giving patient Zofran and prochlorperazine. Patient was given Pedialyte and water later in the day, which he tolerated. Tube feeds were held until Monday; they were started slowly. Patient tolerated feeds on Monday and Monday. On Monday, patient underwent radiation, received fluids but did not receive chemotherapy because oncologist felt that patient appeared too weak. On Monday morning, patient started vomiting again. denies seeing blood in the vomit; she describes it as yellow/green. She denies that her has had fever and chills. He has not had a bowel movement for 4 days, which is not uncommon for him. Patient is on stool softener at home. denies seeing blood or dark stool with last bowel movement. Patient has also complained of pain in his mouth, throat and lymph nodes. Chemotherapy/Radiation: Started in April 2017; patient in 5th week of treatment. Last chemotherapy: 05/22/17; missed 05/29/17 (see above). Last radiation: 05/29/17. CBC/BMP: 05/31/17 0530 06/02/17 0600 Significant Findings Laboratory Tests Test 06/01/17 06/02/17 05:50 06:00 Sodium Level 135 MEQ/L 133 MEQ/L (136-145) (136-145) Estimat Glomerular Filtration 77 ML/MIN (>89) 88 ML/MIN (>89) Rate Calcium Level 7.8 MG/DL 7.9 MG/DL (8.5-10.1) (8.5-10.1) Imaging Last Impressions Chest X-Ray 05/30/17 0919 Signed Impressions: Service Date/Time: Tuesday, May 30, 2017 09:27 - CONCLUSION: 1. No acute abnormality or significant interval change. Joesph Damico MD PE at Discharge GENERAL: This is a thin, tired-looking patient, in no apparent distress. SKIN: Redness around neck and mouth area much improved. Ecchymoses on upper and lower extremities. Cool and dry. HEAD: Atraumatic. Normocephalic. No temporal or scalp tenderness. EYES: Pupils equal round. Extraocular motions intact. No scleral icterus. No injection or drainage. ENT: Nose without bleeding, purulent drainage or septal hematoma. Lips appear dry and cracked - improved. Lesions noted on tongue. Left side of roof of mouth has opening into nasal cavity. Airway patent. NECK: Large, nontender lump noted on left side of neck. Trachea midline. No JVD. CARDIOVASCULAR: Regular rate and rhythm without gallops, or rubs. RESPIRATORY: Clear to auscultation. Breath sounds equal bilaterally. No wheezes , rales, or rhonchi. GASTROINTESTINAL: Abdomen soft, non-tender, nondistended. No hepato-splenomegaly , or palpable masses. No guarding. MUSCULOSKELETAL: Extremities without clubbing, cyanosis, or edema. No joint tenderness, effusion, or edema noted. No calf tenderness. NEUROLOGICAL: Awake and alert. Motor and sensory grossly within normal limits. Normal speech. Hospital Course At admission, patient was dehydrated due to intractable vomiting secondary to concurrent chemotherapy and radiation treatments. In the ED, he received a NS Bolus of 500ml at 500mls/hr once IV and was then started on NS maintenance but later switched to Dextrose/Sodium Chloride 1,000 at 100mls/hr q10h IV due to blood sugars below 100. Patient did not complain of nausea at any time but received Zofran 4mg q6h IV and Prochlorperazine 5mg q6h PRN IVP after one episode of vomiting on Day 2. Otherwise, he tolerated tube feeds throughout the stay. The dehydration had resolved quickly into the stay but patient remained frustrated about current health condition. After speaking to a hospice accounts payable representative, family requested to be transferred to a Hospice Center. Pt Condition on Discharge: Stable Discharge Disposition: Hospice/Med Facility Discharge Instructions DIET: Follow Instructions for: As Tolerated, No Restrictions Activities you can perform: Regular-No Restrictions Follow up Referrals: Oncology - 1 Week with Odalys Bergeron MD PCP Follow-up - 1 Week Continued Medications: Albuterol Neb (Albuterol Neb) 0.63 Mg/3 Ml Neb 0.63 MG NEB Q4HR NEB PRN SHORTNESS OF BREATH #25 Ref 0 NEBULE Alprazolam (Alprazolam) 0.25 Mg Tab 0.25 MG PO Q4H PRN ANXIETY Ref 0 TAB Broccoli Extract (Broccoli Extract) 500 Mg Tab 1000 MG PO DAILY TAB Clopidogrel (Clopidogrel) 75 Mg Tab 75 MG PO DAILY Blood Clot Prevention #30 Ref 0 TAB Ferrous Sulfate (Sm Iron Slow Release) 142 Mg Tab 142 MG PO DAILY Flaxseed (Linseed) (Flax Seed Oil 1000 mg) 1 Cap Cap 1000 MG PO BID Fluticasone Nasal Naper (Flonase Nasal Naper) 50 Mcg/Act Naper 1 SPRAY EACH NARE DAILY PRN ALLERGIES #1 Ref 0 BOTTLE Fluticasone-Salmeterol Inh (Advair Diskus Inh) 250-50 Mcg/Blist Aer 1 PUFF INH BID Rinse mouth after use. #1 Ref 0 INHALER Glutamine (l-Glutamine) 1 Pow Pow PO DAILY 1 TEASPOONFUL Levothyroxine (Levothyroxine) 137 Mcg Tab 137 MCG PO DAILY Thyroid #30 Ref 0 TAB Lovastatin (Lovastatin) 40 Mg Tab 40 MG PO DAILY Cholesterol Management #30 Ref 0 TAB Megestrol (Megestrol) 40 Mg Tab 40 MG PO DAILY Ref 0 TAB Metoprolol Tartrate (Metoprolol Tartrate) 25 Mg Tab 25 MG PO BID #60 Ref 0 TAB Ondansetron (Zofran) 8 Mg Tab 8 MG PO TID PRN NAUSEA OR VOMITING Ref 0 TAB Oxymetazoline Nasal (Afrin Nasal Naper) 0.05% Naper 2-3 SPRAY EACH NARE Q12H PRN NASAL CONGESTION #1 Ref 0 BOTTLE Probiotic Product (Probiotic) 1 Tab Tab 1 TAB PO DAILY Prochlorperazine Maleate (Prochlorperazine Maleate) 10 Mg Tab 10 MG PO Q6H PRN NAUSEA OR VOMITING #6 Ref 0 TAB Pumpkin Seed-Soy Germ (Azo Bladder Kyadzca-Wk-Grmh) 1 Cap Cap 1 CAP PO DAILY PRN Bladder Control Sennosides (Senokot) 8.6 Mg Tab 17.2 MG PO DAILY Constipation #30 Ref 0 TAB ([Aloe Juice]) 180 ML PO BID 1 [id number] ([Plantfusion Protein]) 1 TAB PO BID ([Wheat Grass]) 5 ML PO DAILY LaBell,Denisa PIERSON R1 Jun 03, 2017 09:58
== END 2017-06-02 17:00 | disposition hospice, inpatient (51) | DRG 641 ==
LOC: NEPC 08:46 → NEDA 11:52 → OBSVTOIN 12:20 → HOCB 13:19
PROVIDERS: ADMIT Family Medicine; ATTEND Family Medicine
DX: E86.0 Dehydration (principal); C77.0 Secondary and unspecified malignant neoplasm of lymph nodes of head, face and neck; E46 Unspecified protein-calorie malnutrition; C06.9 Malignant neoplasm of mouth, unspecified; Z93.1 Gastrostomy status; D64.9 Anemia, unspecified; R62.7 Adult failure to thrive; Z68.22 Body mass index [BMI] 22.0-22.9, adult; Y84.2 Radiological procedure and radiotherapy as the cause of abnormal reaction of the patient, or of later complication, without mention of misadventure at the time of the procedure; T45.1X5A Adverse effect of antineoplastic and immunosuppressive drugs, initial encounter; E03.9 Hypothyroidism, unspecified; R11.2 Nausea with vomiting, unspecified; F41.9 Anxiety disorder, unspecified; H91.93 Unspecified hearing loss, bilateral; K59.00 Constipation, unspecified; J45.909 Unspecified asthma, uncomplicated; I25.10 Atherosclerotic heart disease of native coronary artery without angina pectoris; Z95.5 Presence of coronary angioplasty implant and graft; E78.00 Pure hypercholesterolemia, unspecified; Z51.5 Encounter for palliative care
CPT/HCPCS: 71010; 80048; 80053; 81001; 82948; 83605; 83690; 85025; 87040; 93005; 96374; J0780; J1644; J2405; J7030; J7040